=== PATIENT | female | born 1930 | race African-American/Black ===

== ENCOUNTER 2016-11-16 05:48 | Inpatient (IN) | payer MEDICARE, OTHER ==
--- NOTE | ~2016-11-16 | OR ---
Unit #: [id number] #: [id number] Patient: NICANOR LINK [id number] [address] [place], [place] [address] [id number] I MR#: [id number] NAME: NICANOR LINK ROOM: 55 Date of Procedure: 11/17/2016 Admission Date: 11/16/2016 Surgeon: Robin Solares M.D. : 1930 Attending Physician: You Olivera M.D. OPERATIVE REPORT PREOPERATIVE DIAGNOSIS Nausea, vomiting, and weight loss. PROCEDURES PERFORMED Upper gastrointestinal endoscopy and biopsy. POSTOPERATIVE DIAGNOSES 1. The patient had distal confluent ulcerative esophagitis. 2. Moderate prepyloric antral erosive gastritis. 3. Rest of the examination up to the third part of duodenum was normal. The biopsies obtained from the antrum for CLOtest. RECOMMENDATIONS The patient will continue on pantoprazole for now. In view of the CT findings, a colonoscopy is warranted. It is noteworthy that the patient had an attempted colonoscopy last year, which showed very poorly prepped colon. This was discussed at length with the patient's family before scheduling the procedure. SEDATION USED MAC. DESCRIPTION OF PROCEDURE Following detailed explanation of potential risks and complications of an upper endoscopy, namely perforation, bleeding, and complications related to sedation, the patient was brought to GI lab and laid in the left lateral decubitus position. Lubricated tip of the Olympus video upper endoscope was passed through the bite block into the proximal esophagus under direct vision. The entire esophageal mucosa was examined. The patient was noted to have distal confluent ulcerative esophagitis. There was no stricture or mucosal ring. The scope was then advanced into the gastric cavity and the latter was insufflated. Mucosa of the fundus, body, and antrum examined and the patient was noted to have moderate prepyloric antral erosive gastritis. Pylorus was intubated with visualization of the normal duodenal bulb and second and third part of the duodenum. Upon withdrawal and retroflexion, incisura, cardia, and greater curve examined and biopsy obtained from the antrum for CLOtest. The scope was then withdrawn in the distal esophagus. The entire esophageal mucosa was examined all the way up to pharynx. No additional findings noted. The patient tolerated the procedure without any postprocedure complications. Unit #: [id number] #: [id number] Patient: NICANOR LINK Dictated by... Joseline Murillo TD: 11/18/2016 02:05 JOB #: [id number] OPERATIVE REPORT Page 1 of 1 X Robin Solares MD PROCEDURE OPERATIVE NOTE
--- NOTE | ~2016-11-16 | DS ---
Unit #: [id number] #: [id number] Patient: NICANOR LINK [id number] [address] [address] [id number] I MR#: [id number] NAME: NICANOR LINK ROOM: 559 Age: 86 Sex: F Admission Date: 11/16/2016 : 1930 Discharge Date: 11/21/2016 Attending Physician: You Olivera M.D. Primary Care Physician: No Primary Care Physician DISCHARGE SUMMARY REASON FOR ADMISSION Abdominal pain. HISTORY OF PRESENT ILLNESS/HOSPITAL COURSE The patient is an 86-year-old female with a remote prior history of primary biliary cirrhosis, hypertension, hyperlipidemia, GERD, depression, prior history of abdominal aortic aneurysm who presented secondary to intractable abdominal pain. She denied any diarrhea. She states that she has had about ten bouts of nonbloody emesis while at home. She underwent a CT abdomen and pelvis, which showed findings concerning for mild pancreatitis, as well as colitis. She was admitted for the same. She was placed on Levaquin and Flagyl. Consultation was placed to Dr. Solares or gastroenterology services. Patient, through her hospital course underwent upper GI endoscopy, which did show moderate prepyloric antral erosive gastritis. She underwent biopsies. She did have ulcerative esophagitis. She was placed on PPI therapy. She subsequently complained of intractable abdominal pain worsening despite IV antibiotic therapy and she also stated that she had lost approximately 25 to 30 pounds over the past six months and therefore, she underwent a colonoscopy on 11/19/2016, which did show some mild diverticulosis but there was no other acute process, which was noted. Her antibiotics were ultimately discontinued. She did complain of some mild nausea in the last two days of hospital admission but she was treated appropriately with PPI therapy and it was also learned later that she does take chronic pain medications, OxyContin 60 mg p.o. b.i.d. to which she did not receive while she was here. I did make a recommendation to her that she should wean off of these medications and that perhaps a discussion with her pain management physician in regards to the same. She expressed understanding. At the time of discharge, we will recommend OxyContin 20 mg p.o. b.i.d. with the understand that eventually will be discontinued over the next two to three months. FINAL DISCHARGE DIAGNOSES 1. Abdominal pain now resolved. 2. Intractable nausea and vomiting now resolved. 3. Initial colitis on CT imaging, colonoscopy negative. 4. Antral gastritis. Unit #: [id number] #: [id number] Patient: NICANOR LINK 5. Prior history of primary biliary cirrhosis diagnosed 15 years ago. 6. Failure to thrive. 7. Weight loss approximately 25 to 30 pounds, secondary to poor p.o. intake. 8. Hypertension. 9. Hyperlipidemia. 10. GERD. 11. Ulcerative esophagitis. 12. Depression. 13. Chronic low back pain. 14. Chronic pain syndrome. 15. Narcotic dependence. 16. Coronary artery disease. FINAL DISCHARGE MEDICATIONS 1. Wellbutrin XL 300 mg p.o. daily. 2. Lexapro 10 mg p.o. daily. 3. Norvasc 10 mg p.o. q. a.m. 4. Lopressor 25 mg p.o. daily. 5. Lasix 20 mg p.o. daily. 6. Lipitor 40 mg p.o. q.h.s. 7. Cozaar 100 mg p.o. daily. 8. Synthroid 125 mcg p.o. daily. 9. Imdur 30 mg p.o. q. a.m. 10. OxyContin 20 mg p.o. b.i.d. 11. Protonix 40 mg p.o. daily. DISCHARGE CONDITION Stable. DISCHARGE DISPOSITION Home. Dictated by... Joseline Turner/rissa TD: 11/22/2016 10:15 JOB #: [id number] DISCHARGE SUMMARY Page 1 of 1 X You Olivera MD X DISCHARGE SUMMARY
--- NOTE | ~2016-11-16 | CT2 ---
[facility] A Service of [facility] RADIOLOGY TEXT RESULTS PATIENT: NICANOR LINK LOCATION: [facility] : [birth year] UNIT #: [id number] AGE: [address]: Marlon Mathis MD SEX: F ORDER DR: [id number] [facility] [address] [place], [place] [address] [id number] MR#: [id number] Acc #: [id number] NAME: NICANOR LINK : 1930 SEX: F STUDY DATE/TIME: 11/16/2016 7:41 UNIT: [facility] ROOM: STUDY DESCRIPTION: CT Abd and Pelv W Cont Attending Physician: Marlon Mathis M.D. Ordering Physician: oJce Robledo Aprn Primary Care Physician: Primary Care Physician No MEDICAL IMAGING REPORT This report is preliminary unless electronic signature is present EXAM CT abdomen and pelvis with contrast, 11/16/2016 HISTORY 86-year-old female in the ED complaining of 2-day history of generalized abdomen pain with nausea and vomiting. TECHNIQUE CT examination of the abdomen and pelvis with IV contrast. GI contrast was not ordered. This CT exam was performed with one or more of the following radiation dose reduction techniques: automatic exposure control, adjustment of mA and/or kV according to patient size, and iterative reconstruction. FINDINGS ABDOMEN FINDINGS: Postop changes cholecystectomy. Moderate chronic intrahepatic and extrahepatic bile duct dilatation to the level of the ampulla is unchanged dating back to at least 10/29/2013. There is no pancreatic duct dilatation. The liver and spleen are normal in size and appearance. There is ill-defined soft tissue edema throughout the upper abdominal and retroperitoneal mesentery. The wall of the distal stomach appears mildly thickened, and the pancreas appears mildly enlarged. The findings may represent mild acute diffuse pancreatitis or inflammation associated with the stomach, and clinical and laboratory correlation for evidence of acute pancreatitis is recommended. Both kidneys are negative with no evidence of urinary obstruction, with the exception of several tiny bilateral renal cysts. Ectatic abdominal aorta unchanged. [facility] A Service of [facility] RADIOLOGY TEXT RESULTS PAT[facility]: [facility]ICAN[facility]INK [id number] [birth year] UNIT #: [id number] AGE: [address]: Marlon Mathis MD SEX: F ORDER DR: Mild sigmoid diverticulosis. The wall of the transverse colon appears mildly thickened which could indicate primary or secondary colitis. Small bowel and colon are otherwise negative, as imaged. PELVIS FINDINGS: Hysterectomy. Large benign-appearing left adnexal region cyst is unchanged dating back to at least 10/29/2013. Additional note is made of a stable small right adrenal nodule measuring up to 2.1 cm, unchanged since 2013. IMPRESSION 1. Mild soft tissue edema is seen throughout the upper abdominal mesentery and upper retroperitoneum, and the pancreas appears mildly enlarged. There may also be adjacent thickening of the wall of the stomach and transverse colon. The findings suggest potential mild acute pancreatitis, and laboratory correlation is recommended. Gastritis or colitis are also possible. 2. Cholecystectomy with chronic moderate dilatation of the intrahepatic and extrahepatic bile ducts to the level of the ampulla. There is no pancreatic duct dilatation. 3. Large chronic left adnexal region cyst unchanged since at least 2013. This should be benign. Hysterectomy. 4. Mild sigmoid diverticulosis. 5. Stable small right adrenal nodule. Dictated by... Todd Austin M.D. THIS IS AN ELECTRONICALLY VERIFIED REPORT Todd Austin M.D. at 11/16/2016 1:32 PM Jae TD: 11/16/2016 09:18 JOB #: [id number] MEDICAL IMAGING REPORT Page 1 of 1 COPY
--- NOTE | ~2016-11-16 | CO ---
Unit #: [id number] #: [id number] Patient: NICANOR ONEILL [id number] [address] [place], [place] [address] [id number] I MR#: [id number] NAME: NICANOR ONEILL ROOM: 559 Age: 86 Sex: F Admission Date: 11/16/2016 : 1930 Attending Physician: You Olivera M.D. Consultation Date: 11/17/2016 CONSULTATION REPORT REASON FOR CONSULTATION Abdominal pain, nausea, vomiting and weight loss. HISTORY OF PRESENT ILLNESS Ms. Oneill is an 86-year-old female. The patient lives at home with her grandson, who works time study engineer, so a lot of the time during the day she is left to herself and is quite independent. She has presented with history of rather diffuse abdominal pain and cramping. In addition, she also mentioned having lost significant weight. She also has several episodes of nonbloody emesis within the past day or so. The last bowel movement couple of days ago. She apparently had a CAT scan that showed evidence of colitis and gastritis. The patient has been empirically started on Levaquin and Flagyl. PAST MEDICAL HISTORY Significant for history of hypertension, hyperlipidemia, hypothyroidism, gastroesophageal reflux, primary biliary cirrhosis, depression. Previous surgeries included left mastectomy for breast cancer followed by chemotherapy, history of repair of the abdominal aortic aneurysm, thoracic aneurysm, chronic low back pain and coronary artery disease, status post bypass surgery. PAST SURGICAL HISTORY Included cholecystectomy, appendectomy, tubal ligation, hysterectomy, tonsillectomy, abdominal aortic aneurysm repair, left mastectomy, and coronary artery bypass graft. MEDICATIONS At home included escitalopram, Synthroid, Imdur, Wellbutrin, Norvasc, Lipitor, metoprolol, Lasix, and Cozaar. ALLERGIES She is allergic to penicillin and sulfonamides. FAMILY HISTORY Significant for diabetes and hypertension. No family history of colon, pancreatic cancer, or liver disease. SOCIAL HISTORY The patient lives with her grandson. Does not smoke or drink alcohol. 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 REVIEW OF SYSTEMS Detailed review of organ systems does not reveal any fever, chills, or Unit #: [id number] #: [id number] Patient: NIKOLAY,NICANOR rigors. There is history of significant weight loss about 40 pounds in the past year. No history of headache, seizures, chest pain, or syncope. No history of cough, expectoration, or hemoptysis. No history of dysuria, hematuria, or pyuria. No history of focal seizures or extremity weakness. Rest of the review of organ systems is unremarkable. PHYSICAL EXAMINATION GENERAL: She is alert and oriented, and appears comfortable. VITAL SIGNS: Stable with a temperature of 97.5, pulse 74 per minute and regular, respiratory rate is 16, blood pressure 151/83. She weighs 115 pounds, she used to weigh 138 pounds in the past. HEENT: She has no pallor, icterus, lymphadenopathy, or peripheral edema. CARDIOVASCULAR: Normal heart sounds. No murmurs on auscultation. LUNGS: Reveal normal breath sounds. Good air entry. ABDOMEN: Soft and nontender. Liver and spleen are not palpable. Bowel sounds normal. DIAGNOSTIC STUDIES LABORATORY RESULTS: Shows a white count of 11,500 with left shift. Hemoglobin and hematocrit are normal as her platelet count. INR is 1.0. Serum chemistry shows normal BUN and creatinine, and electrolytes. Her albumin is preserved at 4.7 and LFTs are normal. Urinalysis shows 1+ ketone, otherwise unremarkable. CLINICAL IMPRESSION The patient did have an evaluations in the past for abdominal pain, which was negative. It is also noteworthy she had very poor quality of the prep on colonoscopy. Therefore, the latter was not very helpful. An upper endoscopy will be scheduled later today and after that, any further recommendations will be made. Thank you for asking me to see this pleasant woman. I appreciate the consult. Dictated by... Joseline Murillo/mayra TD: 11/18/2016 05:43 JOB #: [id number] CONSULTATION REPORT Page 1 of 1 X Robin Solares MD CONSULTATION REPORT
--- NOTE | ~2016-11-16 | HP ---
Unit #: [id number] #: [id number] Patient: NICANOR LINK [id number] [address] [address] [id number] E MR#: [id number] NAME: NICANOR LINK ROOM: Age: 86 Sex: F Admission Date: 11/16/2016 : 1930 Attending Physician: Marlon Medel M.D. Primary Care Physician: No Primary Care Physician HISTORY AND PHYSICAL CHIEF COMPLAINT Abdominal pain. HISTORY OF PRESENT ILLNESS The patient is an 86-year-old female with a past medical history of primary biliary cirrhosis, hypertension, hyperlipidemia, depression, GERD, abdominal aortic aneurysm, chronic low back pain, primary hyperparathyroidism, coronary artery disease, adrenal nodule, who presented to the emergency department for evaluation of the above. The patient states that she has had a three to four day history of worsening abdominal pain. She states that the pain is "everywhere." She describes it as "cramping." It has been fairly constant in nature. There are no exacerbating or alleviating factors. She has had chills but no documented fevers. She reports more than 10 bouts of nonbloody emesis within the past 24 hours. She denies any diarrhea. She states that her last bowel movement was two days ago. She has noticed increased urinary frequency. In the emergency department, a CT of the abdomen and pelvis was done and showed findings concerning for possible acute mild pancreatitis as well as gastritis or colitis. She was given Levaquin and Flagyl in the emergency department, as well as a 500 mL normal saline bolus, morphine and Zofran. She is being admitted to [facility] for evaluation and further treatment. PAST MEDICAL HISTORY 1. Admission to [facility], February 28-2015, for abdominal pain secondary to pancreatitis and primary biliary cirrhosis. 2. Hypothyroidism. 3. Hyperlipidemia. 4. Hypertension. 5. Depression. 6. Primary biliary cirrhosis. 7. GERD. 8. Breast cancer status post left mastectomy and chemotherapy. 9. Abdominal aortic aneurysm status post repair. 10. Thoracic aneurysm. 11. Chronic low back pain. 12. Primary hyperparathyroidism. 13. Coronary artery disease status post coronary artery bypass grafting. PAST SURGICAL HISTORY Unit #: [id number] #: [id number] Patient: NICANOR LINK 1. Coronary artery bypass grafting. 2. Left mastectomy. 3. Abdominal aortic aneurysm repair. 4. Cholecystectomy. 5. Appendectomy. 6. Bilateral tubal ligation. 7. Hysterectomy. 8. Tonsillectomy. SOCIAL HISTORY The patient's grandson lives with her. There is no tobacco or alcohol use. She typically walks without assistance. Her CODE status is a DO NOT RESUSCITATE. FAMILY HISTORY Hypertension and diabetes. ALLERGIES Penicillin and sulfa. HOME MEDICATIONS 1. Escitalopram 10 mg daily. 2. Synthroid 125 mcg daily. 3. Imdur 30 mg daily. 4. Wellbutrin 300 mg daily. 5. Norvasc 10 mg daily. 6. Lipitor 40 mg daily. 7. Metoprolol 25 mg daily. 8. Lasix 20 mg daily. 9. Cozaar 100 mg daily. REVIEW OF SYSTEMS A complete review of systems is negative except as indicated in the HPI. The patient states that she has lost about 40 pounds over the past year. PHYSICAL EXAMINATION GENERAL APPEARANCE: The patient is an -Cymro female who is awake and alert in no acute distress. VITAL SIGNS: Temperature 98.5. Pulse 67. Respiration 16. Blood pressure 182/86, most recently 193/97. HEENT: The head is atraumatic. Mucous membranes are moist. NECK: Supple. Trachea is midline. CARDIOVASCULAR: Regular rate and rhythm. LUNGS: Clear to auscultation bilaterally with no increased work of breathing. ABDOMEN: Soft. She is tender to palpation throughout. Bowel sounds are present in all four quadrants. EXTREMITIES: Nontender with no pedal edema. NEUROLOGIC: The patient is awake and alert. She follows commands. PSYCHIATRIC: Mood and affect are normal. The patient is cooperative. SKIN: Of examined areas is warm and dry. DIAGNOSTIC STUDIES LABORATORY: Comprehensive metabolic panel notable for glucose of 152, calcium 10.9, alkaline phosphatase 110. Amylase and lipase are normal. Complete blood count notable for WBC count of 11.5. Troponin is less than 0.05. Urinalysis notable for trace protein, 250 glucose, 1+ ketones. CK is 46. Unit #: [id number] #: [id number] Patient: NICANOR LINK IMAGING: CT of the abdomen and pelvis shows findings concerning for possible acute pancreatitis, possible gastritis and colitis. CARDIOVASCULAR: EKG shows sinus rhythm with occasional PVCs and a rate of 69 beats per minute. ASSESSMENT The patient is an 86-year-old female with: 1. Acute pancreatitis by CT. Amylase and lipase are normal. 2. Acute colitis. The patient received Levaquin and Flagyl in the emergency department. 3. History of primary biliary cirrhosis. The patient has a seen Dr. Solares in the past. 4. Hypercalcemia. 5. Hypertension. 6. Hyperlipidemia. 7. Depression. 8. GERD. 9. Abdominal aortic aneurysm status post repair. 10. Chronic low back pain. 11. Primary hyperparathyroidism. 12. Coronary artery disease status post coronary artery bypass grafting. 13. Adrenal nodule. 14. Weight loss. 15. Breast cancer status post mastectomy. PLAN 1. Admit to intermediate level. 2. NPO. 3. Normal saline at 75 mL/hour. 4. PRN Zofran. 5. PRN morphine. 6. PRN Phenergan. 7. Stool studies including ova and parasites, C. diff., culture and sensitivity. 8. Blood cultures x2 if not done. 9. Flagyl and Levaquin pending further workup. 10. Consult Dr. Solares regarding colitis and pancreatitis. 11. Serial cardiac enzymes. 12. Check ionized calcium and intact PTH. 13. Monitor blood pressure closely. 14. Repeat labs in the morning. 15. SCDs for DVT prophylaxis. 16. Additional workup and consults based on above. 17. Regarding CODE status, the patient is a DO NOT RESUSCITATE. Dictated by Joseline Severino/cheyenne TD: 11/16/2016 11:27 JOB #: [id number] Unit #: [id number] #: [id number] Patient: NICANOR LINK HISTORY AND PHYSICAL Page 1 of 1 X Bell Lara MD X HISTORY AND PHYSICAL
--- NOTE | ~2016-11-16 | OR ---
Unit #: [id number] #: [id number] Patient: NICANOR LINK [id number] [address] [place], [place] [address] [id number] I MR#: [id number] NAME: NICANOR LINK ROOM: 559 Date of Procedure: 11/19/2016 Admission Date: 11/16/2016 Surgeon: Robin Solares M.D. : 1930 Attending Physician: You Olivera M.D. OPERATIVE REPORT PREOPERATIVE DIAGNOSES Significant weight loss and left and right lower quadrant abdominal pain. PROCEDURE PERFORMED Colonoscopy up to cecum with excellent preparation and good visualization. POSTOPERATIVE DIAGNOSES The patient had mild sigmoid diverticulosis. Otherwise, examination was normal through the entire colon. RECOMMENDATIONS Can discontinue metronidazole and Levaquin. The patient is to be discharged from GI standpoint. Can also be started on regular diet. SEDATION USED Procedural sedation. DESCRIPTION OF PROCEDURE Following detailed explanation of potential risks and complications of a colonoscopy, namely perforation, bleeding, and complication related to sedation, the patient was brought to GI lab and laid in the left lateral decubitus position. A digital rectal examination was performed, which was normal. Lubricated tip of the Olympus video colonoscope was inserted through the anus and advanced under direct vision. The scope was advanced past rectosigmoid into descending colon. Multiple small diverticula were seen in this area. The scope tip was then navigated all the way up to cecum with visualization of the ileocecal valve and the appendiceal orifice. Preparation was excellent with good visualization and photodocumentation was obtained. Last few inches of the terminal ileum were also visualized after intubation of the ileocecal valve and appeared normal. Successive segments of the colonic mucosa were examined upon withdrawal and appeared unremarkable. There being no polyps, mass lesions, or AVMs. Other than the scant diverticula seen in the sigmoid colon, no other abnormalities were noted. The patient did not have any hemorrhoids at anal verge. The scope was then withdrawn and the patient returned to the recovery area. She tolerated the procedure without any postprocedure complications. Dictated by... Robin Solares M.D. Unit #: [id number] #: [id number] Patient: NICANOR LINK AK/mayra TD: 11/19/2016 21:37 JOB #: [id number] OPERATIVE REPORT Page 1 of 1 X Robin Solares MD PROCEDURE OPERATIVE NOTE
--- NOTE | ~2016-11-16 | EKG ---
PATIENT: NICANOR LINK UNIT #: [id number] Ventricular Rate: 69 BPM Atrial Rate: 69 BPM P-R Interval: 132 ms QRS Duration: 108 ms Q-T Interval: 408 ms QTC Calculation(Bezet): 437 ms P [place]: -3 degrees Calculated R [place]: -41 degrees Calculated T [place]: 21 degrees Diagnosis Line: Sinus rhythm with occasional Premature ventricular Diagnosis Line: complexes Diagnosis Line: Left axis deviation Diagnosis Line: Incomplete right bundle branch block Diagnosis Line: Septal infarct , age undetermined Diagnosis Line: Abnormal ECG Diagnosis Line: No previous ECGs available Diagnosis Line: Confirmed by CHRISTO MOORE MD ([id number]) on 11/17/2016 Diagnosis Line: 5:57:48 AM INTERPRETING MD: OSCAR BARRERA
[2016-11-16 05:04] LABS: ALBUMIN SERUM 4.7 g/dL (3.5-5.0); BILIRUBIN, DIRECT 0.2 mg/dL (0.0-0.2); BILIRUBIN,INDIRECT 0.8 mg/dL (0.0-0.9); BUN/CREATININE RATIO 17.77; CALCIUM SERUM 10.9 mg/dL (8.4-10.2); CREATININE SERUM 0.9 mg/dL (0.6-1.4); GLOM FILT RATE Estimated 68.1 mL/min (>60); POTASSIUM 3.5 mmol/L (3.5-5.1); PROTEIN TOTAL SERUM 8.1 g/dL (6.0-8.3)
[2016-11-16 05:13] LABS: BASOPHIL% 0.3 % (0-2.5); HEMATOCRIT 39.4 % (35.0-45.0); HEMOGLOBIN 12.8 gm/dL (12.0-16.0); LYMPHOCYTE# 0.9 X10e3 (1.0-3.5); LYMPHOCYTE% 7.8 % (17.0-45.0); MEAN CELL VOLUME 93.1 FL (83-96); MEAN CORPUSCULAR HEMOGLOBIN 30.3 PG (28-34); MEAN CORPUSCULAR HGB CONC 32.5 g/dL (30-36); MEAN PLATELET VOLUME 9.5 FL (6.5-11.5); MONOCYTE# 0.3 X10e3 (0-1.0); MONOCYTE% 2.3 % (3.0-12.0); NEUTROPHIL# 10.3 X10e3 (1.5-7.1); NEUTROPHIL% 89.6 % (40-75); PLATELET COUNT 175 X10e3 (140-420); RED BLOOD COUNT 4.24 X10e (3.90-5.30); RED CELL DISTRIBUTION WIDTH 14.9 % (11.0-15.5); WHITE BLOOD COUNT 11.5 X10e3 (4.0-10.5)
[2016-11-16 05:31] LABS: DIFF IND NO
[~2016-11-16 05:48] MED LIST: AMITIZA PO; AMITIZA24 MCG PO; ATARAX PO; AZOR 10-20 MG1 UDTAB PO; COZAAR100 MG PO; ERY-TAB500 MG PO; ESCITALOPRAM OX10 MG PO; IMDUR PO; LASIX20 MG PO; LEVOTHYROXINE112 MCG PO; LIDODERM30 EA TOP; LIPITOR40 MG PO; METAMUCIL0.52 G PO; METOPROLOL SUCC25 MG PO; METOPROLOL TAR25 MG PO; MIRALAX17 G2 PO; MIRALAX17 GM PO; NEXIUM PO; NOLVADEX PO; NORVASC10 MG PO; OXYCONTIN PO; OXYCONTIN20 MG PO; OXYCONTIN60 MG PO; PROTONIX PO; SENNA PO; SYNTHROID PO; URSO PO; WELLBUTRIN PO; WELLBUTRIN XL PO
[2016-11-16 05:51] LABS: POC - CKMB 1.2 ng/mL (0.0-7.9); POC - CKMB 1.4 ng/mL (0.0-7.9); POC - TROPONIN <0.05 ng/mL (<=0.05)
[2016-11-16 06:44] LABS: URINE APPEARANCE CLEAR; URINE BILIRUBIN NEG (NEG); URINE BLOOD NEG (NEG); URINE COLOR YELLOW; URINE GLUCOSE 250 MG/DL (NEG); URINE KETONE 1+ (NEG); URINE LEUKOCYTE ESTERASE NEG (NEG); URINE NITRATE NEG (NEG); URINE PROTEIN TRACE (NEG); URINE SPECIFIC GRAVITY 1.015 (1.003-1.035); URINE UROBILINOGEN 0.2 MG/DL (NEG)
[2016-11-16 06:47] LABS: CULTURE INDICATED? NO
[2016-11-16 10:39] LABS: CK TOTAL 46 IU/L (26-140)
[2016-11-17 17:58] LABS: BASOPHIL% 0.1 % (0-2.5); DIFF IND NO; EOSINOPHIL% 0.1 % (0.0-7.0); HEMOGLOBIN 12.6 gm/dL (12.0-16.0); LYMPHOCYTE# 1.3 X10e3 (1.0-3.5); LYMPHOCYTE% 14.3 % (17.0-45.0); MEAN CELL VOLUME 93.8 FL (83-96); MEAN CORPUSCULAR HEMOGLOBIN 30.2 PG (28-34); MEAN CORPUSCULAR HGB CONC 32.2 g/dL (30-36); MEAN PLATELET VOLUME 9.1 FL (6.5-11.5); MONOCYTE# 0.6 X10e3 (0-1.0); MONOCYTE% 7.3 % (3.0-12.0); NEUTROPHIL# 6.9 X10e3 (1.5-7.1); NEUTROPHIL% 78.2 % (40-75); PLATELET COUNT 142 X10e3 (140-420); RED BLOOD COUNT 4.16 X10e (3.90-5.30); RED CELL DISTRIBUTION WIDTH 15.4 % (11.0-15.5); WHITE BLOOD COUNT 8.8 X10e3 (4.0-10.5)
[2016-11-17 18:21] LABS: CK TOTAL 42 IU/L (26-140)
[2016-11-17 18:31] LABS: THYROID STIMULATING HORMONE 0.13 uIU/ml (0.34-5.60)
[2016-11-17 18:37] LABS: FREE THYROXIN (T4) 1.48 ng/dL (0.58-1.64)
[2016-11-17 21:51] LABS: ALBUMIN SERUM 3.7 g/dL (3.5-5.0); BILIRUBIN,TOTAL 0.7 mg/dL (0.2-2.0); BUN/CREATININE RATIO 23.33; CALCIUM SERUM 10.3 mg/dL (8.4-10.2); CREATININE SERUM 0.9 mg/dL (0.6-1.4); GLOM FILT RATE Estimated 68.1 mL/min (>60); POTASSIUM 3.6 mmol/L (3.5-5.1); PROTEIN TOTAL SERUM 5.9 g/dL (6.0-8.3)
[2016-11-18 05:37] LABS: HEMATOCRIT 33.9 % (35.0-45.0); HEMOGLOBIN 11.2 gm/dL (12.0-16.0); MEAN CORPUSCULAR HEMOGLOBIN 31.2 PG (28-34); MEAN CORPUSCULAR HGB CONC 33.1 g/dL (30-36); MEAN PLATELET VOLUME 9.6 FL (6.5-11.5); RED BLOOD COUNT 3.6 X10e (3.90-5.30); RED CELL DISTRIBUTION WIDTH 14.9 % (11.0-15.5); WHITE BLOOD COUNT 6.7 X10e3 (4.0-10.5)
[2016-11-18 06:33] LABS: GLOM FILT RATE Estimated 59.9 mL/min (>60); MAGNESIUM 1.7 mg/dL (1.6-3.0); POTASSIUM 3.4 mmol/L (3.5-5.1)
[2016-11-19 08:28] LABS: HEMATOCRIT 36.9 % (35.0-45.0); HEMOGLOBIN 11.8 gm/dL (12.0-16.0); MEAN CELL VOLUME 94.7 FL (83-96); MEAN CORPUSCULAR HEMOGLOBIN 30.4 PG (28-34); MEAN CORPUSCULAR HGB CONC 32.1 g/dL (30-36); RED BLOOD COUNT 3.89 X10e (3.90-5.30); RED CELL DISTRIBUTION WIDTH 14.9 % (11.0-15.5); WHITE BLOOD COUNT 6.1 X10e3 (4.0-10.5)
[2016-11-19 09:00] LABS: CALCIUM SERUM 10.5 mg/dL (8.4-10.2); GLOM FILT RATE Estimated 59.9 mL/min (>60)
[2016-11-19 09:03] LABS: POTASSIUM 2.6 mmol/L (3.5-5.1)
[2016-11-20 07:10] LABS: BASOPHIL% 0.3 % (0-2.5); EOSINOPHIL# 0.2 X10e3 (0-0.7); EOSINOPHIL% 2.6 % (0.0-7.0); HEMOGLOBIN 12.4 gm/dL (12.0-16.0); LYMPHOCYTE# 1.8 X10e3 (1.0-3.5); LYMPHOCYTE% 29.3 % (17.0-45.0); MEAN CORPUSCULAR HEMOGLOBIN 30.3 PG (28-34); MEAN CORPUSCULAR HGB CONC 32.6 g/dL (30-36); MEAN PLATELET VOLUME 9.4 FL (6.5-11.5); MONOCYTE# 0.5 X10e3 (0-1.0); MONOCYTE% 8.6 % (3.0-12.0); NEUTROPHIL# 3.7 X10e3 (1.5-7.1); NEUTROPHIL% 59.2 % (40-75); PLATELET COUNT 137 X10e3 (140-420); RED BLOOD COUNT 4.08 X10e (3.90-5.30); RED CELL DISTRIBUTION WIDTH 15.2 % (11.0-15.5); WHITE BLOOD COUNT 6.2 X10e3 (4.0-10.5)
[2016-11-20 07:22] LABS: DIFF IND NO
[2016-11-20 07:58] LABS: BUN/CREATININE RATIO 11.25; CALCIUM SERUM 10.2 mg/dL (8.4-10.2); CREATININE SERUM 0.8 mg/dL (0.6-1.4); GLOM FILT RATE Estimated 78.5 mL/min (>60); MAGNESIUM 1.8 mg/dL (1.6-3.0); POTASSIUM 3.6 mmol/L (3.5-5.1)
[2016-11-21] MEDS ORDERED: ACETAMINOPHEN325 MG PO (15:15)
[2016-11-21] MEDS ORDERED: PROTONIX PO (15:20)
[2016-11-21] MEDS ORDERED: OXYCONTIN PO (15:22)
[2016-11-21] MEDS ORDERED: ONDANSETRON HCL4 M1 PO (15:24)
[2016-11-23 23:49] LABS: CALCIUM (PTHINTACT) 10.3 mg/dL (8.6-10.4)
== END 2016-11-21 16:35 | disposition home or self-care (01) | DRG 439 ==
LOC: CED 05:48 → CEDOF 10:45 → C5B 17:03
PROVIDERS: Family Medicine; Internal Medicine Gastroenterology; Nurse Practitioner Family; Physician Assistant Medical
PROC: 0DB68ZX Excision of Stomach, Via Natural or Artificial Opening Endoscopic, Diagnostic (ICD-10-PCS; 2016-11-17 14:54)
PROC: 0DJD8ZZ Inspection of Lower Intestinal Tract, Via Natural or Artificial Opening Endoscopic (ICD-10-PCS; principal; 2016-11-19 10:00)
DX: K85.10 Biliary acute pancreatitis without necrosis or infection (principal); K22.10 Ulcer of esophagus without bleeding; K74.5 Biliary cirrhosis, unspecified; Z95.1 Presence of aortocoronary bypass graft; K52.9 Noninfective gastroenteritis and colitis, unspecified; E83.52 Hypercalcemia; I10 Essential (primary) hypertension; E78.5 Hyperlipidemia, unspecified; F32.9 Major depressive disorder, single episode, unspecified; K21.9 Gastro-esophageal reflux disease without esophagitis; E21.3 Hyperparathyroidism, unspecified; I25.10 Atherosclerotic heart disease of native coronary artery without angina pectoris; Z85.3 Personal history of malignant neoplasm of breast; R63.4 Abnormal weight loss; M54.5 Low back pain; Z88.0 Allergy status to penicillin; Z88.2 Allergy status to sulfonamides; K57.30 Diverticulosis of large intestine without perforation or abscess without bleeding; K29.50 Unspecified chronic gastritis without bleeding; G89.4 Chronic pain syndrome
CPT/HCPCS: 36415; 74177; 80048; 80053; 80076; 81003; 82150; 82310; 82330; 82550; 82553; 82652; 83690; 83735; 83970; 84439; 84443; 84484; 85025; 85027; 85610; 87040; 87077; 93005; 94760; 96374; 96375; 96376; 97110; 97116; 97162; 97166; 99285; G8987-GO; G8988-GO; G8989-GO; J0360; J1956; J2250; J2270; J2405; J2550; J2765; J3010; Q9967

== ENCOUNTER 2016-12-06 18:40 | Inpatient (IN) | payer MEDICARE, OTHER ==
--- NOTE | ~2016-12-06 | DS ---
Unit #: [id number] #: [id number] Patient: NICANOR LINK [id number] [address] [place], [place] [address] [id number] MR#: [id number] NAME: NICANOR LINK ROOM: 555 Age: 86 Sex: F Admission Date: 12/06/2016 : 1930 Discharge Date: 12/08/2016 Attending Physician: Viviana King M.D. Primary Care Physician: Honey Astorga M.D. DISCHARGE SUMMARY PRINCIPAL DIAGNOSES 1. Near syncope with negative workup. 2. Beta natalya-induced bradycardia, now resolved. 3. Depression with neurologic sequela. 4. Memory loss. 5. Status post falls. 6. Chronic pain syndrome, maintained on narcotics. 7. History of gastritis, symptomatic. 8. Hypothyroidism. 9. Primary hyperparathyroidism with stable calcium levels. 10. Primary biliary cirrhosis. 11. Coronary artery disease. 12. Hypertension. 13. Hyperlipidemia. 14. History of breast cancer. 15. Thoracic aneurysm, status post repair. 16. Chronic low-back pain. SALES PORTER Dr. Kowalski, psychiatry. PROCEDURES 1. Chest x-ray on December 06, 2016 with cardiomegaly and tortuous ectatic thoracic aorta. 2. CT of the head without contrast on December 06, 2016 with no acute intracranial findings. Generalized atrophy is noted. Atherosclerotic calcifications and carotid siphons noted. CLINICAL HISTORY AND HOSPITAL COURSE Ms. Rushing is a very pleasant 86-year-old -[place] female who presents to the emergency department with lightheadedness and falls at home. Please refer to H and P for further details. CT scan of the head in the emergency department was unremarkable; however, she was found to be mildly bradycardic. She was also complaining about belly pain, though hemoglobin was stable. She was subsequently admitted. In regards to patient's near syncope, she has been maintained on telemetry but has been in normal sinus rhythm. Thyroid studies and routine lab work have been unremarkable. B12 was only mildly low at 350. She was also seen by physical therapy and was able to ambulate the hardin without complication. I suspect her lightheadedness may be some underlying weakness due to her age, and I think her depression is playing a role as well. In regard to patient's depression, it does appear to be worsening. She was seen by Dr. Kowalski and Wellbutrin dose has been decreased and she Unit #: [id number] #: [id number] Patient: NICANOR LINK will be maintained on Lexapro. Patient is complaining of epigastric pain and reporting melanotic stools, though these have not been witnessed. I am awaiting a followup H and H this morning but assuming this is stable, I am going to increase her PPI therapy and allow her to be discharged home. In regard to patient's bradycardia, her metoprolol has been held and this is resolved. It may be a contributing factor in her near syncope and I am going to discontinue it. She is also on Lasix at home and this has been held here without any adverse sequela. I am going to hold this upon discharge as well. DISCHARGE CONDITION Stable. DISCHARGE STATUS Discharge to home. DISCHARGE MEDICATIONS 1. Tylenol 325 mg q.4 hours p.r.n. for pain. 2. Wellbutrin XL 150 mg daily. 3. Lexapro 10 mg daily. 4. Zofran 4 mg p.o. q.6 hours p.r.n. for nausea and vomiting. 5. Norvasc 10 mg daily. 6. Lipitor 40 mg at bedtime. 7. Cozaar 100 mg daily. 8. OxyContin 20 mg b.i.d. 9. Protonix 40 mg b.i.d. 10. Levothyroxine 125 mcg p.o. daily. 11. Imdur ER 30 mg daily. 12. Vitamin B12 at 1000 mcg p.o. daily. DISCHARGE INSTRUCTIONS 1. The patient instructed to follow a regular diet. 2. She can increase her activity as tolerated. FOLLOWUP The patient will follow up with Dr. Astorga in approximately two weeks. Dictated by... Viviana King M.D. LETICIA/meme TD: 12/09/2016 12:48 JOB #: [id number] Unit #: [id number] #: [id number] Patient: NICANOR LINK DISCHARGE SUMMARY Page 1 of 1 X Viviana King MD DISCHARGE SUMMARY
--- NOTE | ~2016-12-06 | EKG ---
PATIENT: NICANOR LINK UNIT #: [id number] Ventricular Rate: 49 BPM Atrial Rate: 49 BPM P-R Interval: 152 ms QRS Duration: 100 ms Q-T Interval: 494 ms QTC Calculation(Bezet): 446 ms P [place]: 30 degrees Calculated R [place]: -40 degrees Calculated T [place]: -20 degrees Diagnosis Line: Sinus bradycardia Diagnosis Line: Left axis deviation Diagnosis Line: Incomplete right bundle branch block Diagnosis Line: Septal infarct (cited on or before 19-DEC-2015) Diagnosis Line: T wave abnormality, consider anterolateral Diagnosis Line: ischemia Diagnosis Line: Abnormal ECG Diagnosis Line: When compared with ECG of 16-NOV-2016 03:49, Diagnosis Line: Premature ventricular complexes are no longer Diagnosis Line: Present Diagnosis Line: T wave inversion more evident in Anterior leads Diagnosis Line: Confirmed by QUINTEN KNAPP MD ([id number]) on 12/10/2016 Diagnosis Line: 3:51:18 PM INTERPRETING MD: RA BARRERA
--- NOTE | ~2016-12-06 | CR72 ---
[facility] A Service of [facility] RADIOLOGY TEXT RESULTS PATIENT: NICANOR LINK LOCATION: [facility] : 32 UNIT #: [id number] AGE: [address]: Cece Cisneros MD SEX: F ORDER DR: [id number] [facility] [address] [place], [place] [address] [id number] MR#: [id number] Acc #: [id number] NAME: NICANOR LINK : 1930 SEX: F STUDY DATE/TIME: 12/06/2016 18:43 UNIT: [facility] ROOM: STUDY DESCRIPTION: CR Chest Single View Portable Attending Physician: Cece Cisneros M.D. Ordering Physician: Cece Cisneros M.D. Primary Care Physician: Honey Astorga M.D. MEDICAL IMAGING REPORT This report is preliminary unless electronic signature is present EXAM Portable chest. DATE OF EXAM 12/06/2016 INDICATIONS Shortness of air, and headache with mental status changes since a fall yesterday. History of hypertension. FINDINGS AP portable chest compared with 12/19/2015. Heart is enlarged. Patient is status post CABG. The thoracic aorta is tortuous and ectatic, and there is diffuse atherosclerotic calcification within it. There is some mild scarring or atelectasis in the lingula. Lungs otherwise are clear. No pneumothorax. IMPRESSION Cardiomegaly with a tortuous ectatic thoracic aorta. Mild scarring or atelectasis noted in the lingula. No other evidence of active disease. Dictated by... Brennan Benoit Jr., M.D. THIS IS AN ELECTRONICALLY VERIFIED REPORT Brennan Benoit Jr., M.D. at 12/06/2016 11:04 PM CALEB/luis TD: 12/06/2016 20:19 JOB #: [id number] MEDICAL IMAGING REPORT [facility] A Service of [facility] RADIOLOGY TEXT RESULTS PATIENT: NICANOR LINK LOCATION: [facility] : 32 UNIT #: [id number] AGE: [address]: Cece Cisneros MD SEX: F ORDER DR: Page 1 of 1 COPY
--- NOTE | ~2016-12-06 | CT71 ---
[facility] A Service of [facility] RADIOLOGY TEXT RESULTS PATIENT: NICANOR LINK LOCATION: [facility] 555-01 : 32 UNIT #: [id number] AGE: [address]: Viviana King MD SEX: F ORDER DR: [id number] [facility] [address] [place], [place] [address] [id number] MR#: [id number] Acc #: [id number] NAME: NICANOR LINK : 1930 SEX: F STUDY DATE/TIME: 12/06/2016 18:48 UNIT: [facility] ROOM: [facility] STUDY DESCRIPTION: CT Head Wo Contrast Attending Physician: Viviana King M.D. Ordering Physician: Cece Cisneros M.D. Primary Care Physician: Honey Astorga M.D. MEDICAL IMAGING REPORT This report is preliminary unless electronic signature is present EXAM Head CT, 12/06 INDICATIONS Hit head today. Multiple falls over 3 days. Acute mental status changes and headache. History of breast cancer. FINDINGS Axial images were obtained from the base to the vertex without contrast. Comparison made with 10/12/2014. This CT exam was performed with one or more of the following radiation dose reduction techniques: Automatic exposure control, adjustment of mA and/or kV according to patient size, and iterative reconstruction. Mild generalized atrophy is stable. Ventricular size and configuration are within normal limits. There is no acute infarct or hemorrhage. There are no masses. There are atherosclerotic calcifications in the carotid siphons. There are no skull fractures. IMPRESSION No acute intracranial findings. No skull fracture. Dictated by... Brennan Benoit Jr., M.D. THIS IS AN ELECTRONICALLY VERIFIED REPORT Brennan Benoit Jr., M.D. at 12/07/2016 10:10 AM CALEB/annie TD: 12/06/2016 20:35 JOB #: [id number] [facility] A Service of [facility] RADIOLOGY TEXT RESULTS PATIENT: NICANOR LINK LOCATION: [facility] 555-01 : 32 UNIT #: [id number] AGE: [address]: Viviana King MD SEX: F ORDER DR: MEDICAL IMAGING REPORT Page 1 of 1 COPY
--- NOTE | ~2016-12-06 | HP ---
Unit #: [id number] #: [id number] Patient: NICANOR LINK [id number] [address] [place], [place] [address] [id number] I MR#: [id number] NAME: NICANOR LINK ROOM: [facility] Age: 86 Sex: F Admission Date: 12/06/2016 : 1930 Attending Physician: Lupis Boone M.D. Primary Care Physician: Honey Astorga M.D. HISTORY AND PHYSICAL CHIEF COMPLAINT Falls, near syncope, lightheadedness, sinus bradycardia. HISTORY This pleasant 86-year-old female with hypothyroidism, depression, hypertension, primary biliary cirrhosis, CAD, is admitted for multiple falls. The patient states that she was well until this past week when she began falling. She will feel lightheaded and fall and sometimes is associated with near blackout episodes. Hit her head on each occasion. I am told by the ER physician that family was concerned. When they found the patient today, the house was upended from her recent falls and she did appear to be confused. The patient does have chronic pain and takes OxyContin. There is some question possibly she might have taken more than she was prescribed. She was brought to this emergency department where she currently is in a sinus bradycardia. EKG showed a heart rate as low as 49. The patient does take low dose Lopressor. She is a bit tremulous on exam and is treated with Synthroid for hypothyroidism. She tells me that her sister recently and she has been increasingly depressed, it sounds as if she does not want to live. Does have a prior history of overdose and states that she is feeling as depressed now as when she took an overdose in the remote past. In the ER, she was bolused with 500 mL of normal saline, given Zofran and 40 mg of IV Protonix. Workup thus far is fairly unrevealing except for sinus bradycardia. PAST MEDICAL HISTORY 1. Hypothyroidism. 2. Hyperlipidemia. 3. Depression. 4. Hypertension. 5. Primary biliary cirrhosis, followed by Dr. Solares. 6. History of GERD and esophageal stricture requiring dilation. Last EGD performed in November showed distal confluent ulcerative esophagitis and gastritis. 7. Breast cancer, status post left mastectomy, followed by chemotherapy. 8. Peripheral vascular disease, status post abdominal aortic aneurysm repair. 9. Thoracic aneurysm measuring close to 4 cm. 10. Chronic low back pain. 11. Chronic abdominal pain. 12. Primary hyperparathyroidism with mild hypercalcemia. 13. CAD, status post CABG. 14. History of a left adnexal cystic mass in the past. Unit #: [id number] #: [id number] Patient: NICANOR LINK 15. Cholecystectomy. 16. Appendectomy. 17. BTL. 18. Hysterectomy. 19. Positive tilt table test in the past. 20. Tonsillectomy. ALLERGIES Sulfa and penicillin. HOME MEDICATIONS 1. Lipitor. 2. Lasix. 3. Metoprolol. 4. Protonix. 5. Wellbutrin. 6. Zofran. 7. Compazine. 8. Oxycodone. 9. Lexapro. 10. Norvasc. 11. Imdur. 12. Losartan. Unfortunately, no doses were written. FAMILY HISTORY CAD, hypertension, diabetes mellitus. SOCIAL HISTORY The patient lives with her two grandchildren although they are frequently out of the home. She drinks occasional wine, is a lifelong nonsmoker. REVIEW OF SYSTEMS Notable for increasing depression, lightheadedness, falls, near syncope, headache, hypothyroidism, hyperlipidemia, depression, hypertension, primary biliary cirrhosis, acid reflux, peripheral vascular disease, chronic pain, hyperparathyroidism, CAD, above mentioned surgeries. All other systems were reviewed and are otherwise negative. PHYSICAL EXAMINATION GENERAL APPEARANCE: Very pleasant, thin, young appearing 86-year-old female, currently in no acute distress. VITAL SIGNS: Temperature 97.4, pulse 60 but now is 45, blood pressure 140/88, O2 saturation 98% on room air. HEENT: Eyes PERRLA. Extraocular muscles are intact. Pharynx is benign. NECK: Supple without adenopathy or thyromegaly. CHEST: Clear. CARDIAC: Normal S1 and S2, occasionally regular. ABDOMEN: Bowel sounds are present. Mild generalized abdominal tenderness which seems to localize the right upper quadrant/epigastric region. EXTREMITIES: Without clubbing, cyanosis or edema. Pedal pulses are present. NEUROLOGIC EXAM: The patient is awake, alert, oriented x3. Cranial nerves are intact. She has equal strength throughout. She is mildly tremulous on exam. Negative pronator drift. DIAGNOSTIC STUDIES Unit #: [id number] #: [id number] Patient: NICANOR LINK LABORATORY: Admission labs - hematocrit is 40.6. Normal white count and platelet count. Normal coags. SMA-12 - calcium is 10.6, alkaline phos. 105, normal lipase. Ammonia level negligible. Alcohol level is negligible. Cardiac markers are negative. Urine tox screen positive for opiates and TCAs. The opiates are prescribed. Urine analysis is unremarkable. IMAGING: Head CT - no acute disease. Chest x-ray shows cardiomegaly, tortuous ectatic thoracic aorta and scarring. CARDIOVASCULAR: EKG shows a sinus bradycardia, rate [address] wave abnormalities. ASSESSMENT 1. Multiple falls over the past week preceded by lightheaded and perhaps near syncope: The family was concerned that patient seemed mildly confused as well. 2. Sinus bradycardia, on Lopressor. 3. Chronic pain, on OxyContin or oxycodone. 4. Hypothyroidism. 5. Depression with worsening symptoms following sister's . 6. Primary biliary cirrhosis. 7. Gastroesophageal reflux disease, esophagitis and gastritis. 8. Status post chemotherapy and mastectomy for breast cancer. 9. Peripheral vascular disease, status post abdominal aortic aneurysm repair and a 4 cm thoracic aneurysm. 10. Primary hyperparathyroidism with mild hypercalcemia. 11. Essential hypertension. 12. Coronary artery disease, status post coronary artery bypass graft. PLANS 1. Discontinue Lopressor. 2. Check TSH. If low, will decreased Synthroid. If elevated, would increase Synthroid. 3. Check orthostatics and Holter monitor. 4. [facility] to see for increasing depression. 5. Hold Lasix for now. 6. Verify home medicines. 7. Further workup depending on above. Dictated by Lupis Boone M.D. AML/df TD: 12/07/2016 05:37 Unit #: [id number] #: [id number] Patient: NICANOR LINK JOB #: [id number] HISTORY AND PHYSICAL Page 1 of 1 X Lupis Boone MD HISTORY AND PHYSICAL
--- NOTE | ~2016-12-06 | CO ---
Unit #: [id number] #: [id number] Patient: GRACIELA ONEILL [id number] [facility] [address]. [place], [place] [address] [id number] MR#: [id number] NAME: GRACIELA ONEILL ROOM: 555 Age: 86 Sex: F Admission Date: 12/06/2016 : 1930 Attending Physician: Viviana King M.D. Primary Care Physician: Honey Astorga M.D. Consultation Date: 12/07/2016 CONSULTATION REPORT REASON FOR CONSULTATION Altered mental status, depression, anxiety. HISTORY OF PRESENT ILLNESS Ms. Graciela Oneill is an 86-year-old female, seen in room 555, bed 1 on 12/07/2016 at [facility]. The patient was admitted with altered mental status. Reports that she is feeling better. Still reporting feeling sad, depressed, anxiety, trouble sleeping. The patient reported history of previous treatment at [facility] in . The patient currently on Wellbutrin and Lexapro. Reported still having problem with the anxiety and depression, but denied any suicidal or homicidal ideation. Denied any psychotic symptom. The patient was alert and oriented in time, place, and person. Reported she was confused at the time of admission. The patient's vital signs; temperature 98.4, pulse 67, respiratory rate 18, blood pressure 150/75, oxygen saturation 97%. The patient was recently admitted in 11/2016. The patient denied any use of any drugs or alcohol. Concerns about the patient taking too much medication. PAST PSYCHIATRIC HISTORY Remarkable for history of depression and anxiety, history of inpatient treatment for depression in . MEDICAL HISTORY History of hypothyroidism, hyperlipidemia, hypertension, primary biliary cirrhosis, history of GERD, breast cancer, thoracic aneurysm, chronic back pain, chronic abdominal pain, CAD. MEDICATIONS The patient is on Lipitor, Lasix, metoprolol, Protonix, Zofran, Compazine, oxycodone, Norvasc, Imdur, losartan, takes Wellbutrin 300 mg daily and Lexapro 10 mg daily. FAMILY HISTORY AND SOCIAL HISTORY The patient reports that she has a good support from family. No history of abuse. No history of any substance abuse. REVIEW OF SYSTEMS Complete review of systems is unremarkable except as mentioned above. MENTAL STATUS EXAMINATION Vital signs, please see above. General appearance; the patient thin built, dressed casually in hospital attire, lying comfortably in bed. Attention span and concentration, fair. Speech, regular rate and Unit #: [id number] #: [id number] Patient: GRACIELA ONEILL. Oriented in time, place, and person. Mood and affect were sad, dysphoric, labile. Thought process, coherent. Thought content, the patient denied any thoughts of harming self or others. Recent and remote memory, fair. Language, intact. Fund of knowledge, fair. Insight and judgment, fair to slightly impaired. DIAGNOSES Psychiatric: Major depressive disorder, recurrent, severe, F33.2. Delirium, F05, resolved. Secondary diagnosis: Deferred. Medical diagnosis: Please refer to H and P. Stressors: Psychosocial stressors. ASSESSMENT/PLAN 1. Supportive psychotherapy and psychoeducation provided to the patient. 2. Educated about benefits and side effects of medication and course and prognosis of illness. Advised to cut back on the dosage of Wellbutrin given her age, height, and weight to 150 mg daily. Continue with Lexapro. We will closely monitor. If needed, consider further adjustment of medication. Please feel free to call if any questions, telephone #[phone]. Dictated by... Joseline Miles/mayra TD: 12/08/2016 01:01 JOB #: [id number] CONSULTATION REPORT Page 1 of 1 X Flako Kowalski MD X CONSULTATION REPORT
[2016-12-06 18:29] LABS: POC - CKMB 1.4 ng/mL (0.0-7.9); POC - TROPONIN <0.05 ng/mL (<=0.05)
[2016-12-06 18:34] LABS: BASOPHIL% 0.4 % (0-2.5); EOSINOPHIL% 0.8 % (0.0-7.0); HEMATOCRIT 40.6 % (35.0-45.0); LYMPHOCYTE# 1.5 X10e3 (1.0-3.5); LYMPHOCYTE% 24.1 % (17.0-45.0); MEAN CELL VOLUME 94.4 FL (83-96); MEAN CORPUSCULAR HEMOGLOBIN 30.1 PG (28-34); MEAN CORPUSCULAR HGB CONC 31.9 g/dL (30-36); MEAN PLATELET VOLUME 9.4 FL (6.5-11.5); MONOCYTE# 0.4 X10e3 (0-1.0); MONOCYTE% 7.2 % (3.0-12.0); NEUTROPHIL# 4.1 X10e3 (1.5-7.1); NEUTROPHIL% 67.5 % (40-75); PLATELET COUNT 167 X10e3 (140-420); RED CELL DISTRIBUTION WIDTH 14.4 % (11.0-15.5); WHITE BLOOD COUNT 6.1 X10e3 (4.0-10.5)
[2016-12-06 18:38] LABS: DIFF IND NO
[~2016-12-06 18:40] MED LIST changes: +ACETAMINOPHEN325 MG PO; +ONDANSETRON HCL4 M1 PO
[2016-12-06 18:47] LABS: INR 0.9; PARTIAL THROMBOPLASTIN TIME 25.9 SECONDS (23.5-31.3); PROTHROMBIN TIME (PATIENT) 9.9 SECONDS (9.6-11.5)
[2016-12-06 19:00] LABS: ALBUMIN SERUM 4.7 g/dL (3.5-5.0); ALKALINE PHOSPHATASE 105 U/L (32-92); ALT (SGPT) 11 U/L (10-40); AST (SGOT) 17 U/L (10-42); BILIRUBIN, DIRECT 0.1 mg/dL (0.0-0.2); BILIRUBIN,INDIRECT 0.4 mg/dL (0.0-0.9); BILIRUBIN,TOTAL 0.5 mg/dL (0.2-2.0); BLOOD UREA NITROGEN 22 mg/dL (9-23); CALCIUM SERUM 10.6 mg/dL (8.4-10.2); CARBON DIOXIDE 27 mmol/L (22-31); CHLORIDE 106 mmol/L (100-111); CREATININE SERUM 1.1 mg/dL (0.6-1.4); GLOM FILT RATE Estimated 53.4 mL/min (>60); GLUCOSE FASTING 83 mg/dL (70-110); LIPASE 14 U/L (22-51); POTASSIUM 3.5 mmol/L (3.5-5.1); PROTEIN TOTAL SERUM 7.6 g/dL (6.0-8.3); SODIUM 142 mmol/L (135-145)
[2016-12-06 19:05] LABS: ALCOHOL BLOOD <5 mg/dL (0)
[2016-12-06 20:37] LABS: POC - CKMB 1.3 ng/mL (0.0-7.9); POC - TROPONIN <0.05 ng/mL (<=0.05)
[2016-12-06 20:59] LABS: URINE SOURCE CLEAN CATCH
[2016-12-06 21:03] LABS: URINE APPEARANCE CLEAR; URINE BILIRUBIN NEG (NEG); URINE BLOOD NEG (NEG); URINE COLOR YELLOW; URINE GLUCOSE NEG (NEG); URINE KETONE NEG (NEG); URINE LEUKOCYTE ESTERASE TRACE (NEG); URINE NITRATE NEG (NEG); URINE PROTEIN NEG (NEG); URINE SPECIFIC GRAVITY 1.011 (1.003-1.035); URINE UROBILINOGEN 0.2 MG/DL (NEG)
[2016-12-06 21:06] LABS: URBCS1 AUWI 0-2 /[HPF] (0-2); URINE BACTERIA AUWI NEG (NEGATIVE); URINE SQUAMOUS EPITHELIAL CELL NONE SEEN /[HPF]; UWBCS1 AUWI 0-2 (0-5)
[2016-12-06 21:12] LABS: CULTURE INDICATED? NO
[2016-12-06 21:14] LABS: AMPHETAMINE NEG (NEG); BARBITURATES NEG (NEG); BENZODIAZEPINES NEG (NEG); COCAINE NEG (NEG); MARIJUANA NEG (NEG); OPIATES POS (NEG); TRICYCLIC ANTIDEPRESSANTS POS (NEG); U METHADONE NEG (NEG)
[2016-12-07 05:21] LABS: HEMATOCRIT 35.5 % (35.0-45.0); HEMOGLOBIN 11.6 gm/dL (12.0-16.0); MEAN CELL VOLUME 93.3 FL (83-96); MEAN CORPUSCULAR HEMOGLOBIN 30.5 PG (28-34); MEAN CORPUSCULAR HGB CONC 32.7 g/dL (30-36); MEAN PLATELET VOLUME 8.4 FL (6.5-11.5); RED BLOOD COUNT 3.8 X10e (3.90-5.30); RED CELL DISTRIBUTION WIDTH 14.5 % (11.0-15.5); WHITE BLOOD COUNT 4.6 X10e3 (4.0-10.5)
[2016-12-07 05:45] LABS: BUN/CREATININE RATIO 19.09; CALCIUM SERUM 9.9 mg/dL (8.4-10.2); CREATININE SERUM 1.1 mg/dL (0.6-1.4); GLOM FILT RATE Estimated 53.4 mL/min (>60); POTASSIUM 3.5 mmol/L (3.5-5.1)
[2016-12-08] MEDS ORDERED: WELLBUTRIN XL150 M2 PO (09:48)
[2016-12-08] MEDS ORDERED: B-121000 MC1 PO (09:50)
[2016-12-08 10:33] LABS: HEMATOCRIT 35.9 % (35.0-45.0); HEMOGLOBIN 11.7 gm/dL (12.0-16.0); MEAN CELL VOLUME 93.9 FL (83-96); MEAN CORPUSCULAR HEMOGLOBIN 30.6 PG (28-34); MEAN CORPUSCULAR HGB CONC 32.6 g/dL (30-36); MEAN PLATELET VOLUME 8.9 FL (6.5-11.5); RED BLOOD COUNT 3.82 X10e (3.90-5.30); RED CELL DISTRIBUTION WIDTH 14.6 % (11.0-15.5); WHITE BLOOD COUNT 4.8 X10e3 (4.0-10.5)
== END 2016-12-08 16:28 | disposition home or self-care (01) | DRG 309 ==
LOC: CED 18:40 → CEDOF 23:45 → C5B 12-07 02:08
PROVIDERS: Internal Medicine; Student in an Organized Health Care Education/Training Program
DX: R00.1 Bradycardia, unspecified (principal); F05 Delirium due to known physiological condition; F33.2 Major depressive disorder, recurrent severe without psychotic features; E83.52 Hypercalcemia; K74.5 Biliary cirrhosis, unspecified; R55 Syncope and collapse; E03.9 Hypothyroidism, unspecified; F32.9 Major depressive disorder, single episode, unspecified; I10 Essential (primary) hypertension; I25.10 Atherosclerotic heart disease of native coronary artery without angina pectoris; E78.5 Hyperlipidemia, unspecified; M54.5 Low back pain; Z85.3 Personal history of malignant neoplasm of breast; Z95.1 Presence of aortocoronary bypass graft; Z90.49 Acquired absence of other specified parts of digestive tract; Z90.710 Acquired absence of both cervix and uterus; Z98.51 Tubal ligation status; Z88.0 Allergy status to penicillin; Z88.2 Allergy status to sulfonamides; Z91.81 History of falling; G89.29 Other chronic pain; K21.9 Gastro-esophageal reflux disease without esophagitis; K20.9 Esophagitis, unspecified; K29.70 Gastritis, unspecified, without bleeding; I73.9 Peripheral vascular disease, unspecified; E21.3 Hyperparathyroidism, unspecified; R41.3 Other amnesia
CPT/HCPCS: 36415; 70450; 71010; 80048; 80076; 80307; 81003; 82140; 82550; 82553; 82607; 82947; 83690; 84443; 84484; 85025; 85027; 85610; 85730; 93005; 96360; 97162; 97166; 99285; G0480; G8978-GP; G8979-GP; G8980-GP; G8987-GO; G8988-GO; G8989-GO

== ENCOUNTER → 2017-03-29 | Outpatient (CLI) | payer MEDICARE, OTHER ==
[~2017-03-29] MED LIST changes: +ASPIRIN81 M2 PO; +B-121000 MC1 PO; +CARVEDILOL12.5 MG PO; +COREG PO; +ENSURE113 GM PO; +LEVOTHYROXINE100 MCG PO; +LINZESS290 MCG PO; +PATIENT'S PHARMACY; +PERCOCET5/325 PO; +POTASSIUM CHLO20 ME1 PO; +SENNA8.6 M1 PO; +SYNTHROID125 PO; +WELLBUTRIN XL150 M2 PO
== END | disposition home or self-care (01) ==
LOC: CECH 11:00
DX: I50.22 Chronic systolic (congestive) heart failure (principal); I25.10 Atherosclerotic heart disease of native coronary artery without angina pectoris
CPT/HCPCS: 93306

== ENCOUNTER 2017-03-30 17:41 | Inpatient (IN) | payer MEDICARE ==
[~2017-03-30] VITALS: Ht 160 cm; Wt 53.2 kg
--- NOTE | ~2017-03-30 | DS ---
Unit #: [id number] #: [id number] Patient: NICANOR LINK [id number] [address] [place], [place] [address] [id number] I MR#: [id number] NAME: NICANOR LINK ROOM: 553 Age: 87 Sex: F Admission Date: 03/30/2017 : 1930 Discharge Date: 04/02/2017 Attending Physician: You Olivera M.D. Primary Care Physician: Honey Astorga M.D. DISCHARGE SUMMARY REASON FOR ADMISSION Abdominal pain, nausea, vomiting. HISTORY OF PRESENT ILLNESS/HOSPITAL COURSE The patient is an 87-year-old -[place] female with underlying history of hypothyroidism, hyperlipidemia, depression, hypertension, primary biliary cirrhosis, GERD, was admitted secondary to above. Please see H and P for complete details. Patient had been recently admitted secondary to near syncopal episodes at home. Son became concerned about possible other etiology and brought the patient into the hospital for further evaluation. Initial review did show a CT scan, which showed findings consistent with a descending and sigmoid colitis and therefore she was admitted for the same and placed on IV antibiotics. Appropriate laboratory studies were obtained. Stool studies all returned back negative. Laboratory studies also came back negative and or within normal limits. Dr. Solares was consulted as she had seen the patient in the past. After evaluation by Dr. Solares she stated there was no acute evidence of any colitis. CT findings were actually artifact. No further medications were recommended. Cardiology services were also consulted secondary to bradycardia, dizziness, as well as near syncopal episodes at home. Beta-natalya therapy was placed on hold. Appropriate medication adjustments were made. Please see below for complete details. At this point in time, the patient is clinically stable for discharge home. Overall her long-term prognosis is guarded at best secondary to advanced age and associated comorbid conditions. No antibiotics will be prescribed at time of discharge. FINAL DISCHARGE DIAGNOSIS 1. Abdominal pain, now resolved. 2. Intractable nausea and vomiting on admission now resolved. 3. Colitis per CT findings; however, likely artifactual in nature. 4. Recent hospital admission secondary to near syncope with negative workup. 5. Prior history of beta-natalya induced bradycardia. 6. Depression. 7. Hypothyroidism. 8. Hypertension. 9. Primary biliary cirrhosis, followed by Dr. Solares. 10. Prior history of stricture of the esophagus. 11. Gastritis. Unit #: [id number] #: [id number] Patient: NICANOR LINK 12. Esophagitis. 13. Prior history of breast carcinoma with left mastectomy, followed by chemotherapy in past. 14. Peripheral vascular disease. 15. Prior history of abdominal aortic aneurysm, status post repair. 16. Prior history of thoracic aneurysm approximately 4 cm. 17. Chronic pain syndrome. 18. Coronary artery disease. 19. Prior history of CABG in past. FINAL DISCHARGE MEDICATIONS 1. Ensure t.i.d. with meals. 2. MiraLAX daily. 3. Lasix 20 mg p.o. q. a.m. 4. Linzess 298 mcg p.o. daily. 5. Lipitor 40 mg p.o. q.h.s. 6. Percocet 5/325 one tablet p.o. b.i.d. p.r.n. 7. Protonix 40 mg p.o. daily. 8. Klor-Con 20 mEq p.o. daily. 9. Synthroid 100 mcg p.o. daily, note new dosage. DISCHARGE CONDITION Stable. DISCHARGE DISPOSITION Home. FOLLOWUP Followup PCP in seven to ten days. Patient requires a repeat BMP, TSH, and well as CBC as her Synthroid dosages was adjusted as per decreased TSH levels. Home health to follow at time of discharge. Dictated by... You Olivera M.D. IASAC/rissa TD: 04/04/2017 09:40 JOB #: [id number] DISCHARGE SUMMARY Page 1 of 1 X You Olivera MD X DISCHARGE SUMMARY
--- NOTE | ~2017-03-30 | CT4 ---
[facility] A Service of [facility] & [facility] RADIOLOGY TEXT RESULTS PATIENT: NICANOR LINK LOCATION: [facility] 553-01 : 32 UNIT #: [id number] AGE: [address]: You Olivera MD SEX: F ORDER DR: [id number] [facility] [address] [place], [place] [address] [id number] I MR#: [id number] Acc #: [id number] NAME: NICANOR LINK : 1930 SEX: F STUDY DATE/TIME: 03/30/2017 20:19 UNIT: [facility] ROOM: [facility] STUDY DESCRIPTION: CT Abd and Pelv Wo Cont Attending Physician: You Olivera M.D. Ordering Physician: Saleem Pablo M.D. Primary Care Physician: Honey Astorga M.D. MEDICAL IMAGING REPORT This report is preliminary unless electronic signature is present EXAM Abdomen and pelvis CT without contrast. HISTORY Abdominal pain and constipation for the past 3 days with nausea and vomiting, earlier today. The patient also complains of bilateral lower extremity edema for the past week. COMPARISON 03/05/2017 TECHNIQUE Axial images were obtained without contrast. This CT exam was performed with one or more of the following radiation dose reduction techniques: automatic exposure control, adjustment of mA and/or kV according to patient size, and iterative reconstruction. FINDINGS The liver, spleen and pancreas are normal in size. The kidneys and adrenals are unremarkable. There is a large amount of stool throughout the colon consistent with constipation. Also noted in the pelvis, there is a small amount of free fluid in the pelvic cul-de-sac of questionable significance. The mucosa of the sigmoid and descending colon appears somewhat prominent, although, this is a noncontrasted study which lowers the sensitivity. This could certainly reflect an area of colitis either on the basis of infection or ischemia. Scoliosis is seen rather prominently in the upper lumbar spine convexed to the left. IMPRESSION 1. Markedly increased stool throughout the colon consistent with constipation. 2. The mucosa in the descending colon and sigmoid appears thickened and prominent and this is accompanied by a small amount of free fluid in STS. [facility] A Service of [facility] & [facility] RADIOLOGY TEXT RESULTS PATIENT: NICANOR LINK LOCATION: [facility] 553-01 : 32 UNIT #: [id number] AGE: [address]: You Olivera MD SEX: F ORDER DR: the pelvic cul-de-sac, and this could reflect colitis either on the basis of ischemia or infection. 3. No evidence of small bowel obstruction. 4. No evidence of perforation or free air. Dictated by... Brennan Pompa M.D. THIS IS AN ELECTRONICALLY VERIFIED REPORT Brennan Pompa M.D. at 04/02/2017 7:13 AM DELFIN/luis TD: 03/31/2017 23:25 JOB #: [id number] MEDICAL IMAGING REPORT Page 1 of 1 COPY
--- NOTE | ~2017-03-30 | EKG ---
PATIENT: NICANOR LINK UNIT #: [id number] Ventricular Rate: 62 BPM Atrial Rate: 62 BPM P-R Interval: 160 ms QRS Duration: 98 ms Q-T Interval: 416 ms QTC Calculation(Bezet): 422 ms P [place]: 5 degrees Calculated R [place]: -38 degrees Calculated T [place]: 35 degrees Diagnosis Line: Normal sinus rhythm Diagnosis Line: Left axis deviation Diagnosis Line: RSR' or QR pattern in V1 suggests right Diagnosis Line: ventricular conduction delay Diagnosis Line: T wave abnormality, consider anterior ischemia Diagnosis Line: Abnormal ECG Diagnosis Line: When compared with ECG of 06-DEC-2016 18:24, Diagnosis Line: T wave inversion no longer evident in Inferior Diagnosis Line: leads Diagnosis Line: T wave inversion no longer evident in Lateral Diagnosis Line: leads Diagnosis Line: Confirmed by KIMMY WILSON MD ([id number]) on Diagnosis Line: 04/02/2017 4:40:13 PM INTERPRETING MD: SIGRID
--- NOTE | ~2017-03-30 | CO ---
Unit #: [id number] #: [id number] Patient: NICANOR LINK [id number] [facility] [place] [facility]. [place], [place] [address] [id number] I MR#: [id number] NAME: NICANOR LINK ROOM: 553 Age: 87 Sex: F Admission Date: 03/30/2017 : 1930 Attending Physician: You Olivera M.D. Primary Care Physician: Honey Astorga M.D. Consultation Date: 04/01/2017 CONSULTATION REPORT PRIMARY CARE PHYSICIAN Honey Astorga M.D. REASON FOR CONSULTATION Diarrhea and abdominal pain. HISTORY OF PRESENT ILLNESS Ms. Amaya is a very sweet 87-year-old female. The patient is quite familiar to me from the previous interactions. She apparently had presented with upper abdominal pain along with nausea and vomiting as well as lower extremity edema. Since after admission, she is feeling much better and is actually tolerating regular diet. She has been evaluated for upper abdominal pain and weight loss multiple times. Extensively in the past, she had negative upper endoscopy and colonoscopy as well as CAT scans and lab evaluation. The patient tells me that she lives at home with her son and is at the present time and does not have any symptoms. Her initial presentation with nausea, vomiting, and upper abdominal pain. PAST MEDICAL HISTORY Significant for history of hypothyroidism, depression, hypertension, primary biliary cirrhosis, history of gastroesophageal reflux with esophageal stricture requiring dilation in the past, she also has history of breast cancer previous mastectomy, history of peripheral arterial disease, chronic abdominal pain of undiagnosed origin, hyperparathyroidism, coronary artery disease previous coronary artery bypass graft. PAST SURGICAL HISTORY Included cholecystectomy, appendectomy, coronary artery bypass graft, adnexal cystic mass removal, tubal ligation, hysterectomy, tonsillectomy. HOME MEDICATIONS Included the following; potassium chloride, Lasix, Percocet, Synthroid, Lipitor, Ensure, senna, Protonix, MiraLax, and Coreg. ALLERGIES She is allergic to sulfonamides and penicillin. FAMILY HISTORY Significant for hypertension, diabetes, and coronary artery disease. SOCIAL HISTORY Lives at home with her son and also grandchildren. She drinks very rarely Unit #: [id number] #: [id number] Patient: NICANOR LINK occasional wine and has never smoked in her life. REVIEW OF SYSTEMS Detailed review of organ systems is significant for weight loss and upper abdominal pain. There is no history of headache, seizures, chest pain, or syncope. No history of cough, expectoration, or hemoptysis. No history of dysuria, hematuria, or pyuria. No history of focal seizures or extremity weakness. The patient has had some degree of cognitive dysfunction and cognitive memory impairment. EXAMINATION GENERAL: She appears awake, alert, and comfortable. VITAL SIGNS: Stable with a temperature of 98.7, pulse is 70 per minute and regular, respiratory rate is 18, and blood pressure is 139/61. HEENT: She has no pallor, icterus, lymphadenopathy, or peripheral edema. CARDIOVASCULAR: Normal heart sounds. No murmurs. LUNGS: Auscultation over the lungs reveals normal breath sounds with good air entry. ABDOMEN: Soft and nontender. Liver and spleen are not palpable. Bowel sounds normal. DIAGNOSTIC STUDIES LABORATORY RESULTS: Shows a normal CBC and serum chemistry. In fact, her albumin is the only abnormality which is 3.2, baseline albumin was 3.7 in the past. IMAGING STUDIES: The patient's CT scan shows findings consistent with colitis. CLINICAL IMPRESSION In the absence of any symptomatology, CT findings are not being obtained, be ignored. There is no evidence of colitis in this patient, in fact she is constipated and needs treatment for the latter. There is no need for GI evaluation. Suggest a low regular diet and start MiraLax 17 g p.o. at h.s. Thank you very much for asking me to see this pleasant woman. I appreciate the consult. Dictated by... Joseline Murillo/mayra TD: 04/13/2017 22:15 JOB #: [id number] CC: Joseline Kowalski M.D. Unit #: [id number] #: [id number] Patient: NICANOR LINK CONSULTATION REPORT Page 1 of 1 X Robin Solares MD CONSULTATION REPORT
--- NOTE | ~2017-03-30 | HP ---
Unit #: [id number] #: [id number] Patient: NICANOR LINK [id number] [address] [place], [place] [address] [id number] I MR#: [id number] NAME: NICANOR LINK ROOM: 553 Age: 87 Sex: F Admission Date: 03/30/2017 : 1930 Attending Physician: You Olivera M.D. Primary Care Physician: Honey Astorga M.D. HISTORY AND PHYSICAL CHIEF COMPLAINT Abdominal pain, diffuse upper abdominal pain, with nausea and vomiting and lower extremity edema for one week. DISCUSSION This is an 87-year-old, -[place] female with a past medical history of hypothyroid, dyslipidemia, depression, hypertension, primary biliary cirrhosis, GERD, esophageal stricture requiring dilatation in the past, breast cancer with left mastectomy, peripheral vascular disease, thoracic aneurysm, chronic back pain, history of coronary artery disease with previous CABG. She presented to emergency room and, also, (1) mention that she has a history of, also, bradycardia on previous admission. She was brought to the emergency room with chief complaining of having lower extremity edema for one week and she has an echocardiogram, which was done yesterday as outpatient and she has developed abdominal pain and nausea and vomiting and constipation. Constipation for three days; but nausea, vomiting, and abdominal pain started today. Diffuse upper abdominal pain. She came to the emergency room on workup. On the CT scan, she was found to be the thickening of mucosa involving the descending and sigmoid colon consistent with colitis, ischemic versus infectious and, also, she found to have bradycardia on telemetry monitoring and been admitted for further workup and evaluation. She denied chest pain. She had been having nausea and vomiting for today and diffuse upper abdominal pain and, also, she has not moved bowels for three days. She denies loss of consciousness or any other complaint. PAST MEDICAL HISTORY 1. History of near syncope with negative workup recently. 2. 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 3. History of depression. 4. History of hypothyroid. 5. Hypertension. 6. Primary biliary cirrhosis followed by Dr. Solares. 7. History of GERD/esophageal stricture requiring dilatation in the past. Last EGD performed in November 2016 shows distal ulcerative esophagitis and gastritis. 8. History of breast cancer with previous left mastectomy followed by chemo. 9. History of peripheral vascular disease, status post abdominal aortic aneurysm repair. 10. History of thoracic aneurysm measuring close to 4 cm. 11. Chronic back pain and chronic abdominal pain. 12. History of primary hyperparathyroidism. 13. Coronary artery disease with previous CABG. Unit #: [id number] #: [id number] Patient: NICANOR LINK 14. History of left adnexal cystic mass in the past. 15. History of cholecystectomy. 16. Appendectomy. 17. Bilateral tubal ligation. 18. Hysterectomy. 19. Tonsillectomy. 20. History of positive tilt table test in the past. ALLERGIES She is allergic to sulfa and penicillin. FAMILY HISTORY Positive for coronary artery disease, hypertension, and diabetes. SOCIAL HISTORY She lives with her two grandchildren. They are frequently out of the home. She drinks occasionally wine and she is lifelong nonsmoker. MEDICATIONS From home are followin. Coreg 12.5 b.i.d. 2. Potassium chloride 20 mEq daily. 3. Lasix 20 mg daily. 4. Percocet 5/325 twice a day. 5. Synthroid 0.125 mg daily. 6. Lipitor 40 mg daily. 7. Ensure 1 g 3 times a day. 8. Senna 4 tablets every evening. 9. Protonix 40 mg daily. 10. MiraLAX 17 g daily p.r.n. REVIEW OF SYSTEMS Her 12 review of systems negative, except history of present illness. PHYSICAL EXAMINATION GENERAL APPEARANCE: 87-year-old female lying in the bed comfortably, currently not in any distress. She is alert, awake, oriented x2, comfortable, not in any distress. VITAL SIGNS: Current vitals are following: Temperature 98, heart rate 75, respiratory rate 18, blood pressure 115/66, and oxygen 99% on room air. HEENT: Pupils equal and reactive to light and accommodation. Extraocular muscles are intact. NECK: Supple. No JVD. No thyromegaly. No lymphadenopathy. LUNGS: Clear to auscultation. No rhonchi. No wheezing. HEART: S1 and S2. Regular rate and rhythm. ABDOMEN: Diffuse abdominal tenderness positive with no guarding. No rigidity. EXTREMITIES: 1+ edema. NEURO: Alert and oriented x3. Cranial nerves, II-XII, intact. Power 5/5 on both sides. No focal deficits. SKIN: Warm and dry. PSYCH: Normal mood and affect. DIAGNOSTIC STUDIES LABORATORY: Workup is following: Sodium 140, potassium 4, chloride 109, glucose 112, BUN 26, creatinine 1.3. Lipase 20. LFTs within normal limits. Alkaline phosphatase 100. Troponin less than 0.05. BNP 98. White count 9, hemoglobin 12, hematocrit 37, platelets 212. Unit #: [id number] #: [id number] Patient: NICANOR LINK IMAGING: CT scan of abdomen without contrast shows thickening of the descending and sigmoid colon consistent with ischemic versus infectious colitis. FINAL ASSESSMENT 1. Abnormal CT scan with colitis involving descending and sigmoid colon. Differential diagnosis: Ischemic versus infectious colitis. Will start the patient on IV Flagyl. Ask GI and surgery to evaluate. Give clear liquid diet. IV pain medication with Dilaudid. 2. Lower extremity edema. She is on Lasix 20 mg. BNP normal. She had an echocardiogram done, which (2) done here. I do not have results at this time. 3. Bradycardia on the monitor. Will hold Coreg. She was also on last admission in December shows beta-natalya induced bradycardia. I will hold the Coreg. Ask cardiology to evaluate. 4. Constipation. Will give the Fleets enema and start, also, on lactulose. 5. History of near syncope with negative workup in December 2016. 6. History of depression. 7. Gastroesophageal reflux disease/gastritis/esophageal stricture requiring dilatation in the past. Placed on IV Protonix while in the hospital. 8. Hypothyroid with bradycardia. Recheck TSH. 9. Chronic pain syndrome. 10. History of primary hyperparathyroidism. 11. Primary biliary cirrhosis. 12. Coronary artery disease with previous CABG. 13. Hypertension. 14. Dyslipidemia. 15. History of breast cancer with previous left mastectomy. 16. Thoracic aneurysm, status post repair. 17. Deep venous thrombosis prophylaxis. Will place the patient on renal dose Lovenox. Dictated by Joseline Kowalski/solitario TD: 03/31/2017 07:42 JOB #: [id number] HISTORY AND PHYSICAL Page 1 of 1 X X HISTORY AND PHYSICAL
--- NOTE | ~2017-03-30 | EKG ---
PATIENT: NICANOR LINK UNIT #: [id number] Ventricular Rate: 64 BPM Atrial Rate: 64 BPM P-R Interval: 160 ms QRS Duration: 102 ms Q-T Interval: 400 ms QTC Calculation(Bezet): 412 ms P [place]: 23 degrees Calculated R [place]: -44 degrees Calculated T [place]: 10 degrees Diagnosis Line: Normal sinus rhythm Diagnosis Line: Possible Left atrial enlargement Diagnosis Line: Left axis deviation Diagnosis Line: Incomplete right bundle branch block Diagnosis Line: Anteroseptal infarct (cited on or before Diagnosis Line: 19-DEC-2015) Diagnosis Line: Nonspecific T wave abnormality Diagnosis Line: Abnormal ECG Diagnosis Line: When compared with ECG of 30-MAR-2017 18:21, Diagnosis Line: (unconfirmed) Diagnosis Line: Nonspecific T wave abnormality now evident in Diagnosis Line: Lateral leads Diagnosis Line: Confirmed by KIMMY WILSON MD ([id number]) on Diagnosis Line: 04/02/2017 4:40:53 PM INTERPRETING MD: SIGRID
--- NOTE | ~2017-03-30 | CO ---
Unit #: [id number] #: [id number] Patient: NICANOR LINK [id number] [address] [place], [place] [address] [id number] I MR#: [id number] NAME: NICANOR LINK ROOM: 553 Age: 87 Sex: F Admission Date: 03/30/2017 : 1930 Attending Physician: You Olivera M.D. Primary Care Physician: Honey Astorga M.D. Consultation Date: 03/31/2017 CONSULTATION REPORT PRIMARY REASON FOR CONSULTATION Colitis. HISTORY OF PRESENT ILLNESS The patient is an 87-year-old woman, who presented to the emergency room complaining of lower extremity edema for about a week. She also on the day prior to admission started developing some abdominal pain, nausea, vomiting, and constipation. A CT scan in the emergency room showed thickened descending and sigmoid colon consistent with colitis. There were no complicating features of abscess or perforation. She has not had any previous such symptoms. She has been having diarrhea since admission as well. PAST MEDICAL HISTORY As above. She also has a history of syncope; bradycardia; depression; hypothyroidism; hypertension; primary biliary cirrhosis; history of reflux with stricture dilatation; history of breast cancer, she is status post left mastectomy; history of peripheral vascular disease; she has had a history of abdominal aortic aneurysm repair; chronic back pain, chronic abdominal pain; and primary hyperparathyroidism. She has had a CABG in the past as well. She is status post cholecystectomy, appendectomy, bilateral tubal ligation, hysterectomy, and tonsillectomy. MEDICATIONS See her MAR. ALLERGIES She is allergic to sulfa and penicillin. FAMILY HISTORY Noncontributory. SOCIAL HISTORY She denies alcohol or drug abuse. She has never smoked cigarettes. REVIEW OF SYSTEMS A 10-point review is performed. This is negative other than what was already listed in the history of present illness. PHYSICAL EXAMINATION GENERAL: She is alert, in no apparent distress. VITAL SIGNS: Temperature 98.0, pulse 75, respirations 18, blood pressure 115/66, and she is 99% saturated on room air. HEENT: Pupils are equal and round. Extraocular motions are intact. Unit #: [id number] #: [id number] Patient: NIKOLAY,NICANOR NECK: Supple without adenopathy. HEART: Regular rate and rhythm. LUNGS: Clear to auscultation anteriorly. ABDOMEN: Soft. Some discomfort in the mid and left abdomen. There is no guarding. No peritoneal signs. No masses appreciable. EXTREMITIES: Negative for clubbing or cyanosis. NEURO: Negative focal sensory or motor deficits. SKIN: Warm and dry. DIAGNOSTIC STUDIES LABORATORY RESULTS: Labs are significant for white blood cell count of 9 and hemoglobin 12. Electrolytes within normal limits. IMAGING STUDIES: CT scan demonstrates colitis of the descending and sigmoid colon without complicating features. ASSESSMENT AND PLAN The patient with uncomplicated colitis. Hopefully, she will defervesce with antibiotics alone. There are no surgical indications at this time. We will continue to follow with you. Dictated by... Joseline Interiano/mayra TD: 04/02/2017 14:03 JOB #: [id number] CONSULTATION REPORT Page 1 of 1 X James Perez CONSULTATION REPORT
--- NOTE | ~2017-03-30 | EKG ---
PATIENT: NICANOR LINK UNIT #: [id number] Ventricular Rate: 65 BPM Atrial Rate: 65 BPM P-R Interval: 154 ms QRS Duration: 104 ms Q-T Interval: 394 ms QTC Calculation(Bezet): 409 ms P [place]: 18 degrees Calculated R [place]: -41 degrees Calculated T [place]: 2 degrees Diagnosis Line: Normal sinus rhythm Diagnosis Line: Left axis deviation Diagnosis Line: Incomplete right bundle branch block Diagnosis Line: Abnormal ECG Diagnosis Line: When compared with ECG of 30-MAR-2017 19:07, Diagnosis Line: (unconfirmed) Diagnosis Line: Questionable change in initial forces of Anterior Diagnosis Line: leads Diagnosis Line: T wave inversion no longer evident in Anterior Diagnosis Line: leads Diagnosis Line: Confirmed by KIMMY WILSON MD ([id number]) on Diagnosis Line: 04/02/2017 4:57:39 PM INTERPRETING MD: SIGRID
--- NOTE | ~2017-03-30 | DS ---
Unit #: [id number] #: [id number] Patient: NICANOR LINK [id number] [address] [address] [id number] I MR#: [id number] NAME: NICANOR LINK ROOM: 553 Age: 87 Sex: F Admission Date: 03/30/2017 : 1930 Discharge Date: 04/02/2017 Attending Physician: You Olivera M.D. Primary Care Physician: Honey Astorga M.D. DISCHARGE SUMMARY ADDENDUM Please note after review by cardiology services, Dr. Connell, decision has been made to initiate patient on Coreg 3.125 mg p.o. b.i.d. Her Lasix will be discontinued and her potassium supplement will also be discontinued. Recommendation has been made for her to be on aspirin 81 mg p.o. daily which will be continued per cardiology. All other medications as well as hospital course remain the same and unchanged. Dictated by... Joseline Turner/meme TD: 04/04/2017 10:33 JOB #: [id number] DISCHARGE SUMMARY Page 1 of 1 X You Olivera MD X DISCHARGE SUMMARY
--- NOTE | ~2017-03-30 | CR72 ---
[facility] A Service of [facility] & [facility] RADIOLOGY TEXT RESULTS PATIENT: NICANOR LINK LOCATION: [place] [address] : 32 UNIT #: [id number] AGE: [address]: You Olivera MD SEX: F ORDER DR: [id number] [facility] [address] [place], [place] [address] [id number] I MR#: [id number] #: [id number] NAME: NICANOR LINK : 1930 SEX: F STUDY DATE/TIME: 03/30/2017 19:42 UNIT: [facility] ROOM: [facility] STUDY DESCRIPTION: CR Chest Single View Portable Attending Physician: You Olivera M.D. Ordering Physician: Saleem Pablo M.D. Primary Care Physician: Honey Astorga M.D. MEDICAL IMAGING REPORT This report is preliminary unless electronic signature is present EXAM Portable chest. HISTORY Congestion, nausea and bilateral lower extremity edema, onset today. TECHNIQUE Single AP view of the chest was obtained and compared with 12/06/2016. FINDINGS Cardiomegaly and a tortuous dilated thoracic aorta are again noted. The lungs are clear with no new infiltrates noted. Vascular markings are within normal limits. No pleural fluid is seen. IMPRESSION No change from previous exam. Tortuous aorta. No evidence of congestive heart failure or focal infiltrate. Dictated by... Brennan Pompa M.D. THIS IS AN ELECTRONICALLY VERIFIED REPORT Brennan Pompa M.D. at 04/02/2017 7:13 AM DELFIN/luis TD: 03/31/2017 23:00 JOB #: [id number] MEDICAL IMAGING REPORT Page 1 of 1 COPY
--- NOTE | ~2017-03-30 | CO ---
Unit #: [id number] #: [id number] Patient: NICANOR LINK [id number] [address] [place], [place] [address] [id number] MR#: [id number] NAME: NICANOR LINK ROOM: 553 Age: 87 Sex: F Admission Date: 03/30/2017 : 1930 Attending Physician: You Olivera M.D. Primary Care Physician: Honey Astorga M.D. Consultation Date: 03/31/2017 CONSULTATION REPORT REASON FOR CONSULTATION Bradycardia and lower extremity edema. HISTORY OF PRESENT ILLNESS This is an 87-year-old female, known to Dr. 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 The patient presented to the hospital with complaints of dizziness. and she has had episodes where she has nearly fell, but he has caught her prior to falling and now reports of syncope. She has had some occasional chest pain. Yesterday, she had an episode of chest pain while she was sitting. It was in her midsternal chest. There was no radiation or associating symptoms. She has noted some swelling in her lower extremities, possibly worse in the left. This is not present on exam. In addition, she has had abdominal pain and constipation. There are no reports of PND, orthopnea, or more significant shortness of breath. There are no reports of palpitations. She denies fever, chills. She has had constipation, but no melena. The swelling in her legs and the abdominal pain have been present for about a week. There are no aggravating or alleviating factors. In the emergency department, her heart rate was reportedly bradycardic in the 40s to 50s. At this time states it dropped as low as 29, but there is no telemetry strips to confirm this. Cardiology was consulted for bilateral lower extremity edema and bradycardia. EKG revealed sinus rhythm with left axis deviation and incomplete right bundle-branch block. Labs reveal hemoglobin 11.3, white blood cell count normal. Electrolyte and creatinine are stable. BNP is 98. Lactic acid level 0.7. TSH level is low 0.02. PAST MEDICAL HISTORY 1. 24 hour Holter monitor on 10/12/2014 revealed isolated PVC and supraventricular ectopy. 2. Near syncope in 2015 possibly from autonomic dysfunction. 3. Coronary artery disease with history of coronary artery bypass grafting x3 approximately 7 or 8 years ago. Details pending. 4. Aortic aneurysm, followed as an outpatient. 5. Hypertension. Unit #: [id number] #: [id number] Patient: NICANOR LINK 6. Hyperlipidemia. 7. Hypothyroidism. 8. Primary hyperparathyroid and mild hyperkalemia. 9. Primary biliary cirrhosis. 10. Gastroesophageal reflux disease. 11. History of esophageal stricture. 12. History of breast cancer, status post mastectomy, chemotherapy. 13. Depression. 14. Nonsmoker. PAST SURGICAL HISTORY 1. Coronary artery bypass graft. 2. EGD and colonoscopy. 3. Mastectomy secondary to breast cancer. HOME MEDICATIONS Potassium chloride 20 mEq p.o. daily, carvedilol 12.5 mg p.o. b.i.d., Lasix 20 mg p.o. daily, Percocet 5/325 mg one tablet p.o. b.i.d. p.r.n., Synthroid 0.125 mg p.o. daily, Lipitor 40 mg p.o. daily, Ensure 1 can p.o. t.i.d., senna 4 tablets p.o. every evening, Protonix 40 mg p.o. daily, MiraLAX 17 g p.o. daily. ALLERGIES To penicillin and sulfa. SOCIAL HISTORY The patient lives in a private residence with her son. She is fairly sedentary, but is able to clean around the house and bathe on her own. She is a nonsmoker. There are no reports of alcohol or illicit drug use. FAMILY HISTORY Noncontributory. REVIEW OF SYSTEMS A 10-point review of systems is negative except for details as noted above in HPI. PHYSICAL EXAMINATION VITAL SIGNS: Temperature 98.9, pulse 85, blood pressure 133/65. CONSTITUTIONAL: This is an 87-year-old female, in no acute distress. SKIN: Warm and dry. NECK: Supple. No jugular venous distention. No hepatojugular reflux. HEART: S1, S2. Regular rate and rhythm. No murmurs, rubs, or gallops. LUNGS: Bilateral breath sounds have good air entry throughout all lung messer. Respirations even and nonlabored. No rales, rhonchi, or wheezes. ABDOMEN: Soft with generalized tenderness. Positive bowel sounds auscultated in all quadrants. No ascites noted. EXTREMITIES: Lower extremities have 1+ nonpitting edema. . Capillary refill less than 2 seconds. DIAGNOSTIC STUDIES LABORATORY RESULTS: White blood cell count 5.5, hemoglobin 11.3, hematocrit 34.6, platelets 170. Sodium 139, potassium 4.0, chloride 110, CO2 of 22, BUN 26, creatinine 1.0, glucose 117, AST 13, ALT 14, alkaline phosphatase 77. BNP 98. Lactic acid 0.7. TSH 0.02. Initial troponin negative. Unit #: [id number] #: [id number] Patient: NICANOR LINK CARDIOVASCULAR STUDIES: EKG reveals sinus rhythm with left axis deviation and complete right bundle-branch block. QTc 422 msec. Acute abnormality in the anteroseptal leads from V1 to V3. IMPRESSION 1. Dizziness and near syncope. 2. Reported bradycardia. 3. Chest pain. 4. Abdominal pain. 5. Constipation. 6. Possible colitis. 7. Bilateral lower extremity edema with no overt congestive heart failure. 8. Low TSH level with history of hyperparathyroidism and hypothyroidism. 9. Coronary artery disease with history of coronary artery bypass grafting x3. 10. Hypertension. 11. Hyperlipidemia. 12. History of breast cancer. 13. History of gastroesophageal reflux disease with esophageal stricture. 14. Depression. 15. PLAN 1. The patient presented to the hospital with multiple complaints. She is admitted for abdominal pain. Cardiology was consulted for lower extremity edema and bradycardia. Telemetry reveals no pauses or high-grade AV block. The patient was on beta-natalya at home, which has been placed on hold. 2. TSH level is low. The patient's Synthroid should be decreased. 3. A 2D echocardiogram will be ordered to assess LV function valve. 4. The patient had recent chest pain. We will trend cardiac enzymes and EKG. The family would like conservative medical management and does not want the patient to undergo any invasive procedures. 5. One dose of Lasix will be given for lower extremity edema. However, there was no significant volume overload or overt failure on exam. Dictated by... Shanthi Cho PSYD for Joseline Rhoades/mayra TD: 04/03/2017 04:29 JOB #: [id number] CONSULTATION REPORT Page 1 of 1 X X CONSULTATION REPORT
[~2017-03-30 17:41] MED LIST changes: -ASPIRIN81 M2 PO; -CARVEDILOL12.5 MG PO; -COREG PO; -ENSURE113 GM PO; -LEVOTHYROXINE100 MCG PO; -LINZESS290 MCG PO; -PATIENT'S PHARMACY; -PERCOCET5/325 PO; -POTASSIUM CHLO20 ME1 PO; -SENNA8.6 M1 PO; -SYNTHROID125 PO
[2017-03-30 18:37] LABS: BASOPHIL% 0.1 % (0-2.5); EOSINOPHIL% 0.4 % (0.0-7.0); HEMATOCRIT 37.1 % (35.0-45.0); HEMOGLOBIN 12.3 gm/dL (12.0-16.0); LYMPHOCYTE# 0.9 X10e3 (1.0-3.5); LYMPHOCYTE% 9.8 % (17.0-45.0); MEAN CELL VOLUME 93.4 FL (83-96); MEAN CORPUSCULAR HEMOGLOBIN 30.8 PG (28-34); MEAN PLATELET VOLUME 9.3 FL (6.5-11.5); MONOCYTE# 0.7 X10e3 (0-1.0); MONOCYTE% 7.6 % (3.0-12.0); NEUTROPHIL# 7.9 X10e3 (1.5-7.1); NEUTROPHIL% 82.1 % (40-75); PLATELET COUNT 212 X10e3 (140-420); RED BLOOD COUNT 3.98 X10e (3.90-5.30); RED CELL DISTRIBUTION WIDTH 13.5 % (11.0-15.5); WHITE BLOOD COUNT 9.6 X10e3 (4.0-10.5)
[2017-03-30 18:38] LABS: DIFF IND NO
[2017-03-30 18:56] LABS: POC - CKMB 1.3 ng/mL (0.0-7.9); POC - TROPONIN <0.05 ng/mL (<=0.05)
[2017-03-30 19:45] LABS: POC - CKMB 1.5 ng/mL (0.0-7.9); POC - TROPONIN <0.05 ng/mL (<=0.05)
[2017-03-30 19:57] LABS: ALBUMIN SERUM 3.7 g/dL (3.5-5.0); BILIRUBIN, DIRECT 0.1 mg/dL (0.0-0.2); BILIRUBIN,INDIRECT 0.3 mg/dL (0.0-0.9); BILIRUBIN,TOTAL 0.4 mg/dL (0.2-2.0); BUN/CREATININE RATIO 21.66; CALCIUM SERUM 10.2 mg/dL (8.4-10.2); CREATININE SERUM 1.2 mg/dL (0.6-1.4); GLOM FILT RATE Estimated 47.7 mL/min (>60); PROTEIN TOTAL SERUM 6.5 g/dL (6.0-8.3)
[2017-03-30] MEDS ORDERED: PATIENT'S PHARMACY (20:16)
[2017-03-30] MEDS ORDERED: CARVEDILOL12.5 MG PO (20:21)
[2017-03-30] MEDS ORDERED: LASIX20 MG PO (20:22)
[2017-03-30] MEDS ORDERED: SYNTHROID125 PO (20:22)
[2017-03-30] MEDS ORDERED: POTASSIUM CHLO20 ME1 PO (20:22)
[2017-03-30] MEDS ORDERED: PERCOCET5/325 PO (20:22)
[2017-03-30] MEDS ORDERED: LIPITOR40 MG PO (20:23)
[2017-03-30] MEDS ORDERED: ENSURE113 GM PO (20:24)
[2017-03-30] MEDS ORDERED: SENNA8.6 M1 PO (20:24)
[2017-03-30] MEDS ORDERED: PROTONIX PO (20:25)
[2017-03-30] MEDS ORDERED: MIRALAX17 GM PO (20:25)
[2017-03-30 21:07] LABS: URINE SOURCE CLEAN CATCH
[2017-03-30 21:12] LABS: URINE APPEARANCE CLEAR; URINE BILIRUBIN NEG (NEG); URINE BLOOD NEG (NEG); URINE COLOR YELLOW; URINE GLUCOSE NEG (NEG); URINE KETONE NEG (NEG); URINE LEUKOCYTE ESTERASE NEG (NEG); URINE NITRATE NEG (NEG); URINE PROTEIN NEG (NEG); URINE SPECIFIC GRAVITY 1.022 (1.003-1.035)
[2017-03-30 21:15] LABS: CULTURE INDICATED? NO
[2017-03-31 06:25] LABS: BASOPHIL% 0.2 % (0-2.5); EOSINOPHIL# 0.1 X10e3 (0-0.7); EOSINOPHIL% 1.2 % (0.0-7.0); HEMATOCRIT 34.6 % (35.0-45.0); HEMOGLOBIN 11.3 gm/dL (12.0-16.0); MEAN CELL VOLUME 92.7 FL (83-96); MEAN CORPUSCULAR HEMOGLOBIN 30.1 PG (28-34); MEAN CORPUSCULAR HGB CONC 32.5 g/dL (30-36); MEAN PLATELET VOLUME 8.7 FL (6.5-11.5); MONOCYTE# 0.7 X10e3 (0-1.0); MONOCYTE% 12.7 % (3.0-12.0); NEUTROPHIL# 3.7 X10e3 (1.5-7.1); NEUTROPHIL% 67.9 % (40-75); PLATELET COUNT 170 X10e3 (140-420); RED BLOOD COUNT 3.73 X10e (3.90-5.30); RED CELL DISTRIBUTION WIDTH 13.3 % (11.0-15.5); WHITE BLOOD COUNT 5.5 X10e3 (4.0-10.5)
[2017-03-31 06:33] LABS: DIFF IND NO
[2017-03-31 07:07] LABS: ALBUMIN SERUM 2.8 g/dL (3.5-5.0); BILIRUBIN,TOTAL 0.5 mg/dL (0.2-2.0); CALCIUM SERUM 9.4 mg/dL (8.4-10.2); GLOM FILT RATE Estimated 59.5 mL/min (>60); PROTEIN TOTAL SERUM 4.9 g/dL (6.0-8.3)
[2017-04-01 10:13] LABS: HEMATOCRIT 36.9 % (35.0-45.0); HEMOGLOBIN 12.3 gm/dL (12.0-16.0); MEAN CORPUSCULAR HEMOGLOBIN 30.7 PG (28-34); MEAN CORPUSCULAR HGB CONC 33.4 g/dL (30-36); MEAN PLATELET VOLUME 9.4 FL (6.5-11.5); RED BLOOD COUNT 4.01 X10e (3.90-5.30); RED CELL DISTRIBUTION WIDTH 13.4 % (11.0-15.5); WHITE BLOOD COUNT 5.8 X10e3 (4.0-10.5)
[2017-04-01 10:49] LABS: ALBUMIN SERUM 3.2 g/dL (3.5-5.0); BILIRUBIN,TOTAL 0.7 mg/dL (0.2-2.0); BUN/CREATININE RATIO 15.55; CALCIUM SERUM 9.9 mg/dL (8.4-10.2); CREATININE SERUM 0.9 mg/dL (0.6-1.4); GLOM FILT RATE Estimated 67.6 mL/min (>60); POTASSIUM 3.4 mmol/L (3.5-5.1); PROTEIN TOTAL SERUM 5.9 g/dL (6.0-8.3)
[2017-04-02 07:19] LABS: HEMATOCRIT 35.4 % (35.0-45.0); HEMOGLOBIN 11.7 gm/dL (12.0-16.0); MEAN CELL VOLUME 92.4 FL (83-96); MEAN CORPUSCULAR HEMOGLOBIN 30.6 PG (28-34); MEAN CORPUSCULAR HGB CONC 33.1 g/dL (30-36); MEAN PLATELET VOLUME 9.2 FL (6.5-11.5); RED BLOOD COUNT 3.83 X10e (3.90-5.30); RED CELL DISTRIBUTION WIDTH 13.3 % (11.0-15.5); WHITE BLOOD COUNT 7.1 X10e3 (4.0-10.5)
[2017-04-02 07:54] LABS: BUN/CREATININE RATIO 12.22; CALCIUM SERUM 10.1 mg/dL (8.4-10.2); CREATININE SERUM 0.9 mg/dL (0.6-1.4); GLOM FILT RATE Estimated 67.6 mL/min (>60); POTASSIUM 3.6 mmol/L (3.5-5.1)
[2017-04-02] MEDS ORDERED: LEVOTHYROXINE100 MCG PO (09:41)
[2017-04-02] MEDS ORDERED: LINZESS290 MCG PO (09:43)
[2017-04-02] MEDS ORDERED: COREG PO (12:25)
[2017-04-02] MEDS ORDERED: ASPIRIN81 M2 PO (12:26)
== END 2017-04-02 13:02 | disposition home health service (06) | DRG 392 ==
LOC: CED 17:41 → CEDOF 21:12 → C5B 22:03
PROVIDERS: Emergency Medicine; Family Medicine
DX: R10.9 Unspecified abdominal pain (principal); E83.52 Hypercalcemia; R00.1 Bradycardia, unspecified; K74.5 Biliary cirrhosis, unspecified; F32.9 Major depressive disorder, single episode, unspecified; I10 Essential (primary) hypertension; E03.9 Hypothyroidism, unspecified; K59.00 Constipation, unspecified; R60.0 Localized edema; R55 Syncope and collapse; R07.9 Chest pain, unspecified; T46.2X5A Adverse effect of other antidysrhythmic drugs, initial encounter; Y92.9 Unspecified place or not applicable; E78.5 Hyperlipidemia, unspecified; K21.9 Gastro-esophageal reflux disease without esophagitis; K29.70 Gastritis, unspecified, without bleeding; K20.9 Esophagitis, unspecified; I25.10 Atherosclerotic heart disease of native coronary artery without angina pectoris; Z95.5 Presence of coronary angioplasty implant and graft; G89.4 Chronic pain syndrome; I73.9 Peripheral vascular disease, unspecified; Z90.49 Acquired absence of other specified parts of digestive tract; Z90.710 Acquired absence of both cervix and uterus; Z88.0 Allergy status to penicillin; Z88.2 Allergy status to sulfonamides; Z85.3 Personal history of malignant neoplasm of breast; Z90.12 Acquired absence of left breast and nipple; Z83.3 Family history of diabetes mellitus; Z82.49 Family history of ischemic heart disease and other diseases of the circulatory system
CPT/HCPCS: 36415; 51701; 71010; 74176; 80048; 80053; 80076; 81003; 82553; 83605; 83690; 83880; 84443; 84484; 85025; 85027; 87045; 87427; 87493; 87899; 93005; 94760; 96374; 96375; 97161; 97165; 99285; C9113; G8987-GO; G8988-GO; G8989-GO; J1170; J1650; J1940; J1956; J2405; J2765